=== PATIENT | male | born 1960 | race Caucasian/White ===

== ENCOUNTER 2022-01-14 07:10 | Outpatient (CLI) | payer BC, OTHER, SELFPAY ==
[2022-01-14 07:52] LABS: Basophils Absolute Auto 0.04 K/uL (0.00-0.30); Basophils Percent Auto 0.5 % (0.0-3.0); Eosinophils Absolute Auto 0.19 K/uL (0.00-0.50); Eosinophils Percent Auto 2.5 % (0.0-7.0); Hematocrit 49.6 % (37.0-53.0); Hemoglobin* 16.6 gm/dL (13.5-17.5); Lymphocytes Absolute Auto 1.61 K/uL (0.90-2.90); Lymphocytes Percent Auto 20.8 % (20-44); Mean Corpuscular HGB Conc 34 gm/dL (32-36); Mean Corpuscular Hemoglobin 30 pg (26-34); Mean Corpuscular Volume 91 fL (80-100); Monocytes Percent Auto 8.2 % (0.0-11.0); Neutrophils Absolute Auto 5.16 K/uL (1.7-7.0); Neutrophils Percent Auto 66.7 % (42.0-72.0); Platelet Count* 227 K/uL (140-440); RDW Coefficient of Variation % 13.1 % (11.5-15.5); Red Blood Count 5.46 m/uL (4.30-5.90); White Blood Count* 7.73 K/uL (4.50-11.00)
[2022-01-14 07:56] LABS: Slide Review Reflex No
--- NOTE | 2022-01-14 08:00 | CRLHL7_ITS ---
For Patients: As a result of the Century Cures Act, medical imaging exams and procedure reports are released immediately into your electronic medical record. You may view this report before your referring provider. If you have questions, please contact your health care provider. Indication: Follicular lymphoma Technique: Contrast CT chest abdomen and pelvis Comparison: CT chest abdomen and pelvis dated 01/18 Findings: Ascending thoracic aortic aneurysm measuring 4.4 centimeters. Heart Size is normal. There is no pericardial effusion. No mediastinal or hilar adenopathy. No axillary adenopathy. Lungs are clear. Fatty appearance of the liver. Spleen is not enlarged adrenal glands pancreas gallbladder are unremarkable normal caliber abdominal aorta. Kidneys appear unremarkable. Prostate gland enlarged. Urinary bladder unremarkable. Diverticulosis normal appendix. Central mesenteric and retroperitoneal adenopathy. Slight worsening of retroperitoneal adenopathy left periaortic lymph node series 2, image 163 measures 2.4 centimeter short axis when remeasured in similar locations measured 2.1 centimeters by short axis. Minimal worsening of central mesenteric adenopathy. Mesenteric stranding. The central mesenteric enlarged node measuring 3 x 2 centimeters on series 2, image 178 is not significantly changed. Minimal enlargement of few smaller nodes example 1.7 centimeter short axis node previously measured 1.4 centimeters on series 2, image 172. Small fat containing inguinal hernias no pelvic adenopathy seen. No suspicious bony lesions are seen. Impression: 1. Mild worsening of retroperitoneal and central mesenteric adenopathy. Please note that all CT scans at this facility use dose modulation, iterative reconstruction, and/or weight-based dosing when appropriate to reduce radiation dose to as low as reasonably achievable. Dictated by Dori Garcia MD @ 01/14/2022 9:09:43 AM (Electronically Signed)
[2022-01-14 08:07] LABS: Albumin* 4.9 g/dL (3.3-5.0)
[2022-01-14 08:08] LABS: Chloride* 106 mmol/L (96-114); Potassium* 5.2 mmol/L (3.6-5.1); Sodium* 144 mmol/L (135-149)
[2022-01-14 08:10] LABS: Alkaline Phosphatase* 66 U/L (40-150); Aspartate Amino Transferase* 40 U/L (12-35); Bilirubin Total* 0.5 mg/dL (0.1-1.5); Carbon Dioxide* 28 mmol/L (20-32); Creatinine* 0.9 mg/dL (0.5-1.5); Estimated Glomerular Filt Rate 96 ml/min; Total Protein* 7.8 g/dL (6.0-8.3)
[2022-01-14 08:11] LABS: Alanine Aminotransferase* 45 U/L (4-50); Blood Urea Nitrogen* 23 mg/dL (7-30); Calcium* 9.8 mg/dL (8.4-10.6); Glucose* 117 mg/dL (60-115); Lactate Dehydrogenase* 456 U/L (313-618)
[2022-01-15 17:30] LABS: Beta-2-Microglob Serum/Plasma 1.6 mg/L (<=3.0)
[2022-01-17 16:37] LABS: Albumin 4.34 g/dL (3.75-5.01); Alpha 1 Globulin 0.33 g/dL (0.19-0.46); Immunofixation IFE Done; Immunoglobulin A 316 mg/dL (68-408); Immunoglobulin G 892 mg/dL (768-1632); Immunoglobulin M 55 mg/dL (35-263); Kappa/Lambda Light Chain Ratio 1.43 (0.26-1.65); Lambda Qnt Free Light Chains 14.93 mg/L (5.71-26.30); Total Protein, Serum 7.3 g/dL (6.3-8.2)
== END 2022-01-14 07:11 | disposition home or self-care (01) ==
LOC: CT 07:12
PROVIDERS: PCP Student in an Organized Health Care Education/Training Program; Visit Provider Internal Medicine Medical Oncology
DX: C82.00 Follicular lymphoma grade I, unspecified site (principal); K40.90 Unilateral inguinal hernia, without obstruction or gangrene, not specified as recurrent
CPT/HCPCS: 36415; 71260; 74177; 80053; 82232; 82784; 83520; 83615; 84155; 84165; 85025; 86334; Q9967

== ENCOUNTER 2022-02-21 15:30 | Outpatient (RCR) | payer BC, OTHER, SELFPAY ==
--- NOTE | 2022-05-13 07:38 | ONC.NURNOTE ---
Pt stopped by to obtain copy of his most recent visit note for Affairs; pt to call us if needs additional documentation.
== END 2022-07-13 23:59 | disposition home or self-care (01) ==
LOC: CCIC 15:30
PROVIDERS: PCP Student in an Organized Health Care Education/Training Program; Visit Provider Internal Medicine Medical Oncology
DX: C82.00 Follicular lymphoma grade I, unspecified site (principal)
CPT/HCPCS: 99212; 99214

== ENCOUNTER 2022-05-21 19:55 | Observation (INO) | payer BC, OTHER, SELFPAY ==
[2022-05-21 20:06] VITALS: BP 95/76; PULSE 64; RESP 22; TEMP 36.3; O2SAT 92; BMI 31.3
--- NOTE | 2022-05-21 20:25 | CRLHL7_ITS ---
For Patients: As a result of the Century Cures Act, medical imaging exams and procedure reports are released immediately into your electronic medical record. You may view this report before your referring provider. If you have questions, please contact your health care provider. INDICATION: Trauma, fall. TECHNIQUE: CT chest, abdomen, and pelvis acquired with 95 mL Isovue 370 contrast. COMPARISON: CT chest/abdomen/pelvis dated 01/14/2022. FINDINGS: CHEST: Lungs and pleura: Bilateral dependent atelectasis. No evidence of pulmonary contusion, laceration, or pneumothorax. Heart and vessels: No cardiomegaly, no pericardial effusion. Thyroid and lower neck: No suspicious thyroid nodule. Mediastinum/kianna: No lymphadenopathy. Chest wall: No axillary lymphadenopathy. ABDOMEN/PELVIS: Liver: Diffuse hepatic steatosis. No evidence of hepatic laceration. Gallbladder and bile ducts: Unremarkable. Pancreas: Few punctate parenchymal calcifications. No pancreatic duct dilation. Spleen: Unremarkable. No evidence of splenic laceration. Adrenal glands: Unremarkable. Kidneys: Kidneys enhance symmetrically, without hydronephrosis. Retroperitoneum: Retroperitoneal lymphadenopathy, not significantly changed. For example an enlarged left retroperitoneal lymph node measures 2.1 x 2.6 cm (series 2, image 177). Bowel and mesentery: Bowel is not obstructed. Scattered colonic diverticulosis, without evidence of acute diverticulitis. Normal appendix. No mesenteric hematoma. No pneumoperitoneum. No significant change in mid abdominal mesenteric lymphadenopathy and hazy mesentery. Bladder: Unremarkable for degree of distension. Reproductive organs: Unremarkable. Pelvic lymph nodes: No lymphadenopathy. Vessels: Unremarkable. Abdominal wall: No acute abdominal wall abnormality. Bones: No acute displaced rib fracture. IMPRESSION: 1. No evidence of acute visceral traumatic injury within the chest, abdomen, or pelvis. 2. Stable mesenteric and retroperitoneal lymphadenopathy, compatible with history of lymphoma. Please note that all CT scans at this facility use dose modulation, iterative reconstruction, and/or weight-based dosing when appropriate to reduce radiation dose to as low as reasonably achievable. Dictated by Tere Pink MD @ 05/21/2022 11:14:21 PM (Electronically Signed)
--- NOTE | 2022-05-21 20:25 | CRLHL7_ITS ---
For Patients: As a result of the Cures Act, medical imaging exams and procedure reports are released immediately into your electronic medical record. You may view this report before your referring provider. If you have questions, please contact your health care provider. INDICATION: Trauma, fall on ice. TECHNIQUE: CT lumbar spine without contrast. COMPARISON: CT chest/abdomen/pelvis dated 01/14/2022. FINDINGS: Vertebrae: No acute displaced fracture or traumatic malalignment. Discs and facet joints: Mild multilevel disc degenerative changes. Bilateral facet arthropathy. Extraspinal findings: See separate report of same day CT abdomen/pelvis. IMPRESSION: No acute displaced fracture or traumatic malalignment of the lumbar spine. Please note that all CT scans at this facility use dose modulation, iterative reconstruction, and/or weight-based dosing when appropriate to reduce radiation dose to as low as reasonably achievable. Dictated by Tere Pink MD @ 05/21/2022 11:20:30 PM (Electronically Signed)
--- NOTE | 2022-05-21 20:26 | CRLHL7_ITS ---
For Patients: As a result of the Cures Act, medical imaging exams and procedure reports are released immediately into your electronic medical record. You may view this report before your referring provider. If you have questions, please contact your health care provider. INDICATION: Trauma, fall. TECHNIQUE: CT thoracic spine without contrast. COMPARISON: CT chest/abdomen/pelvis dated 01/14/2022. FINDINGS: Vertebrae: Small fractured anterior osteophyte at the level of T7. No acute vertebral body compression fracture. No evidence of traumatic malalignment. Discs and facet joints: Disc spaces and facets are within normal limits. Extraspinal findings: See separate report of same day CT chest. IMPRESSION: Small fractured anterior osteophyte at the level of T7. No acute vertebral body compression fracture, no evidence of traumatic malalignment. Please note that all CT scans at this facility use dose modulation, iterative reconstruction, and/or weight-based dosing when appropriate to reduce radiation dose to as low as reasonably achievable. Dictated by Tere Pink MD @ 05/21/2022 11:25:09 PM (Electronically Signed)
[2022-05-21 20:30] VITALS: BP 109/71; PULSE 63; RESP 18; O2SAT 94
--- NOTE | 2022-05-21 20:40 | ED_ITS ---
HPI - General Adult General Date Seen: 05/21/22 <Yareli Hilario MD - Last Filed: 05/22/22 12:04> Chief complaint: Fall/Minor Trauma <Yareli Hilario MD - Last Filed: 05/22/22 12:04> Stated complaint: Fall <Yareli Hilario MD - Last Filed: 05/22/22 12:04> Time Seen by Provider: 05/21/22 20:11 <Yareli Hilario MD - Last Filed: 05/22/22 12:04> Source: patient and family <MD Coni Rodriguez Last Filed: 05/22/22 12:04> Mode of arrival: EMS <Yareli Hilario MD - Last Filed: 05/22/22 12:04> Limitations: no limitations <Yareli Hilario MD - Last Filed: 05/22/22 12:04> History of Present Illness HPI narrative: Patient is a 61-year-old male who was walking on his deck, slipped on the ice and fell, hitting his back on the edge of the deck. He complains of pain essentially he says in a band around his body at about the level of his lower ribcage. He notes that this is severe. It is painful to breathe. He denies hitting his head, has no neck pain or headache. He came in by EMS and received some fentanyl EN route. The seems to have made him a little sleepy but he still complains of severe pain. He notes abdominal pain as well. No numbness or loss of function. No vomiting. Does not take any blood thinners. Did not have any loss of consciousness. <Yareli Hilario MD - Last Filed: 05/22/22 12:04> Related Data Home medications: Previous Rx's Medication Instructions Recorded cyclobenzaprine 10 mg tablet 10 mg PO TID PRN muscle spasm #10 05/21/22 tabs <Yareli Hilario MD - Last Filed: 05/22/22 12:04> Allergies/adverse reactions: Allergies Allergy/AdvReac Type Severity Reaction Status Date / Time No Known Drug Allergies Allergy Verified 02/21/22 16:04 <MD Coni Rodriguez Last Filed: 05/22/22 12:04> Review of Systems Status of ROS: Reports: 10 or more systems reviewed and unremarkable except as noted in History and below <Yareli Hilario MD - Last Filed: 05/22/22 12:04> [facility] Medical History: Medical History (Updated 05/22/22 @ 03:50 by Hector Marroquin MD) Lymphoma <Yareli Hilario MD - Last Filed: 05/22/22 12:04> Social History: Social History Highest level of school completed/degree received: Associate degree: academic program Smoking Status: Never smoker Do you use any of these nicotine containing products: None Second hand tobacco smoke exposure: No How often do you have a drink containing alcohol: 2-3 times a week Alcohol type: beer How many standard drinks containing alcohol do you have on a typical day: 3 or 4 How often do you have six or more drinks on one occasion: Never AUDIT-C Alcohol total score: 4 Non-prescribed substance use: denies use Caffeine: Yes (4 cups per day) service: Yes <Yareli Hilario MD - Last Filed: 05/22/22 12:04> Exam Narrative: Exam Narrative: Primary survey: Airway: Patent. Breathing: Nonlabored. Lungs clear. Circulation: Pulses intact. No external bleeding. Disability: GCS 15. Secondary survey: Vital signs reviewed In general, an alert, nontoxic Head: Normocephalic, atraumatic. Eyes: Pupils are equal reactive. Extraocular movements full. ENT: No facial trauma. Dentition intact. Neck: Cervical collar in place. No midline cervical tenderness. No anterior neck trauma. Chest: No visible signs of chest trauma. Complains of tenderness in the lower chest wall. Upper chest wall nontender to palpation. No crepitus, no subcu air. Heart regular rate and rhythm. Lungs clear bilaterally. Abdomen: No visible signs of trauma. Protuberant, complains of severe pain to light palpation. Back: Deferred initially secondary to pain with any movement. Pelvis: Stable, nontender. Extremities: Atraumatic and nontender to palpation. Neurologic: Alert, conversant, moves all extremities to command. Skin: Warm and dry, no abrasions or lacerations. <Yareli Hilario MD - Last Filed: 05/22/22 12:04> Const: Vital Signs, click to edit/add: Vital Signs - 24 hr 05/21/22 20:06 05/21/22 21:30 05/21/22 21:00 Temperature 97.3 F L Pulse Rate [Left P ulse Oximeter] 64 68 69 Respiratory Rate 22 20 20 Blood Pressure [Ri ght Upper Arm] 95/76 118/78 110/77 Pulse Oximetry 92 93 93 Oxygen Delivery Me thod Room Air Room Air Room Air 05/21/22 20:30 05/21/22 22:48 05/21/22 22:48 Temperature Pulse Rate [Left P ulse Oximeter] 63 Respiratory Rate 18 Blood Pressure [Ri ght Upper Arm] 109/71 Pulse Oximetry 94 92 92 Oxygen Delivery Me thod Room Air Room Air 05/21/22 23:30 Temperature Pulse Rate [Left P ulse Oximeter] 63 Respiratory Rate 20 Blood Pressure [Ri ght Upper Arm] 123/69 Pulse Oximetry 93 Oxygen Delivery Me thod Room Air <Yareli Hilario MD - Last Filed: 05/22/22 12:04> Vital Signs, click to edit/add: Vital Signs - 24 hr 05/21/22 20:06 05/21/22 21:30 05/21/22 21:00 Temperature 97.3 F L Pulse Rate [Left P ulse Oximeter] 64 68 69 Respiratory Rate 22 20 20 Blood Pressure [Ri ght Upper Arm] 95/76 118/78 110/77 Pulse Oximetry 92 93 93 Oxygen Delivery Me thod Room Air Room Air Room Air 05/21/22 20:30 05/21/22 22:48 05/21/22 22:48 Temperature Pulse Rate [Left P ulse Oximeter] 63 Respiratory Rate 18 Blood Pressure [Ri ght Upper Arm] 109/71 Pulse Oximetry 94 92 92 Oxygen Delivery Me thod Room Air Room Air 05/21/22 23:30 Temperature Pulse Rate [Left P ulse Oximeter] 63 Respiratory Rate 20 Blood Pressure [Ri ght Upper Arm] 123/69 Pulse Oximetry 93 Oxygen Delivery Me thod Room Air <Sri Chong MD - Last Filed: 05/21/22 23:54> Vital Signs, click to edit/add: Vital Signs - 24 hr 05/21/22 20:06 05/21/22 21:30 05/21/22 21:00 Temperature 97.3 F L Pulse Rate [Left P ulse Oximeter] 64 68 69 Respiratory Rate 22 20 20 Blood Pressure [Ri ght Upper Arm] 95/76 118/78 110/77 Pulse Oximetry 92 93 93 Oxygen Delivery Me thod Room Air Room Air Room Air 05/21/22 20:30 05/21/22 22:48 05/21/22 22:48 Temperature Pulse Rate [Left P ulse Oximeter] 63 Respiratory Rate 18 Blood Pressure [Ri ght Upper Arm] 109/71 Pulse Oximetry 94 92 92 Oxygen Delivery Me thod Room Air Room Air 05/21/22 23:30 Temperature Pulse Rate [Left P ulse Oximeter] 63 Respiratory Rate 20 Blood Pressure [Ri ght Upper Arm] 123/69 Pulse Oximetry 93 Oxygen Delivery Me thod Room Air <Hector Marroquin MD - Last Filed: 05/22/22 03:50> Course Course Hospital Course: Patient arrived by EMS but was sitting up at the time of my initial evaluation. He said it was too painful to lay down. I did give him an additional 4 mg of morphine. I looked with the ultrasound and did not see any evidence of fluid in Morison's pouch, pelvis, splenorenal views. No evidence of pericardial effusion, and he had sliding lung signs bilaterally. Given complaints of severe pain in his lower chest, diffuse abdomen and across his back, I ordered CT scans of his chest, abdomen, thoracic and lumbar spine. After left he apparently complained to the nurse that his left arm was feeling a little numb. He still does not have any complaints of neck pain or trauma but I did add on a CT of the cervical spine as well. Labs thus far show white blood cell count of 14.6, related possibly to his history of lymphoma which is being followed. He is not on any kind of active treatment currently. Hemoglobin is 16.5, platelets are a little low 125,000. Metabolic panel normal. LFTs minimally elevated, AST of 65 an ALT of 61. Bilirubin is normal troponin is negative. Lipase is normal at 237. CT scans are pending at this time. <Yareli Hilario MD - Last Filed: 05/22/22 12:04> Reevaluation(s) Reevaluation #1: Took over the care of this patient. Patient continued to have diffuse overall pain. He received another dose of morphine as well as Ativan. Cervical spine CT was unremarkable. Chest, abdomen, pelvis CT scan unremarkable for any acute findings. Thoracic spine CT shows a small fractured osteophyte but no vertebral body fractures. Lumbar spine CT unremarkable. <Sri Chong MD - Last Filed: 05/21/22 23:54> Reevaluation #2: Our EHR was down, I am entering this in after the fact, but what happened this patient was signed over to me by the outgoing ER physician, with the fact that he was going to go home, I went back in to and clearly he could not even stand up, without pain coming across his chest and abdomen. It was characteristically like a compression fracture, I went back in and reviewed the CT thoracic, and could see and a bleach type fracture of the anterior part of the T7 vertebrae. This is not all stated in the report, I then called the radiologist who read that, and he had then appended his report. I spoke to from neuro surgery and [facility]. He agreed that this is a stable fracture, it is basically pain control at this time, there is no evidence on his review of the CT of a hematoma, or retropulsion of anything causing impingement of the spinal canal. A TLSO is suggested for pain control, this may need cervical component back component to prevent extension. I then spoke to of Suresh , admission to the hospital here would be appropriate for pain control. <Hector Marroquin MD - Last Filed: 05/22/22 03:50> Time: 03:46 <Hector Marroquin MD - Last Filed: 05/22/22 03:50> Vital Signs Vital signs: Initial Vital Signs Temperature 97.3 F L 05/21/22 20:06 Temperature Source Temporal Artery Scan 05/21/22 20:06 Pulse Rate 64 05/21/22 20:06 Respiratory Rate 22 05/21/22 20:06 Blood Pressure 95/76 05/21/22 20:06 Blood Pressure Mean 82 05/21/22 20:06 Blood Pressure Position Supine 05/21/22 20:06 Pulse Oximetry 92 05/21/22 20:06 Oxygen Delivery Method 05/21/22 20:06 Vital Signs Temperature 97.3 F L 05/21/22 20:06 Pulse Rate 64 05/21/22 20:06 Respiratory Rate 22 05/21/22 20:06 Blood Pressure 95/76 05/21/22 20:06 Pulse Oximetry 92 05/21/22 20:06 Oxygen Delivery Method 05/21/22 20:06 Temperature 97 F L 05/22/22 04:27 Pulse Rate 75 05/22/22 04:26 Respiratory Rate 16 05/22/22 04:12 Blood Pressure 118/80 05/22/22 04:12 Pulse Oximetry 93 05/22/22 04:20 Oxygen Delivery Method 05/22/22 04:20 <Yareli Hilario MD - Last Filed: 05/22/22 12:04> Initial Vital Signs Temperature 97.3 F L 05/21/22 20:06 Temperature Source Temporal Artery Scan 05/21/22 20:06 Pulse Rate 64 05/21/22 20:06 Respiratory Rate 22 05/21/22 20:06 Blood Pressure 95/76 05/21/22 20:06 Blood Pressure Mean 82 05/21/22 20:06 Blood Pressure Position Supine 05/21/22 20:06 Pulse Oximetry 92 05/21/22 20:06 Oxygen Delivery Method 05/21/22 20:06 Vital Signs Temperature 97.3 F L 05/21/22 20:06 Pulse Rate 64 05/21/22 20:06 Respiratory Rate 22 05/21/22 20:06 Blood Pressure 95/76 05/21/22 20:06 Pulse Oximetry 92 05/21/22 20:06 Oxygen Delivery Method 05/21/22 20:06 Temperature 97 F L 05/22/22 04:27 Pulse Rate 75 05/22/22 04:26 Respiratory Rate 16 05/22/22 04:12 Blood Pressure 118/80 05/22/22 04:12 Pulse Oximetry 93 05/22/22 04:20 Oxygen Delivery Method 05/22/22 04:20 <Sri Chong MD - Last Filed: 05/21/22 23:54> Initial Vital Signs Temperature 97.3 F L 05/21/22 20:06 Temperature Source Temporal Artery Scan 05/21/22 20:06 Pulse Rate 64 05/21/22 20:06 Respiratory Rate 22 05/21/22 20:06 Blood Pressure 95/76 05/21/22 20:06 Blood Pressure Mean 82 05/21/22 20:06 Blood Pressure Position Supine 05/21/22 20:06 Pulse Oximetry 92 05/21/22 20:06 Oxygen Delivery Method 05/21/22 20:06 Vital Signs Temperature 97.3 F L 05/21/22 20:06 Pulse Rate 64 05/21/22 20:06 Respiratory Rate 22 05/21/22 20:06 Blood Pressure 95/76 05/21/22 20:06 Pulse Oximetry 92 05/21/22 20:06 Oxygen Delivery Method 05/21/22 20:06 Temperature 97 F L 05/22/22 04:27 Pulse Rate 75 05/22/22 04:26 Respiratory Rate 16 05/22/22 04:12 Blood Pressure 118/80 05/22/22 04:12 Pulse Oximetry 93 05/22/22 04:20 Oxygen Delivery Method 05/22/22 04:20 <Hector Marroquin MD - Last Filed: 05/22/22 03:50> Medical Decision Making MDM Narrative Medical decision making narrative: 61-year-old male status post a fall imaging was unremarkable aside from the osteophyte fracture. Discussed this with the patient. He felt like he was having multiple muscle spasms that caused him to cry out in pain while he was here but he does feel reassured that his scans are normal. Patient will be discharged home on Flexeril. We discussed other symptomatic management and reasons for follow-up. patient and had no other questions. <Sri Chong MD - Last Filed: 05/21/22 23:54> Medical Records Medical records reviewed: Yes I reviewed the patient's medical records <Sri Chong MD - Last Filed: 05/21/22 23:54> Lab Data Lab results reviewed: Yes I reviewed the patient's lab results <Sri Chong MD - Last Filed: 05/21/22 23:54> Labs: Lab Results 05/21/22 05/21/22 05/21/22 Range/Units 20:39 20:39 20:45 WBC 14.60 H (4.50-11.00) K/uL RBC 5.50 (4.30-5.90) m/uL Hgb 16.5 (13.5-17.5) gm/dL Hct 50.9 (37.0-53.0) % MCV 93 (80-100) fL MCH 30 (26-34) pg MCHC 32 (32-36) gm/dL RDW Coeff of [place] 13.2 (11.5-15.5) % Plt Count 125 L (140-440) K/uL Neut % (Auto) 72.9 H (42.0-72.0) % Lymph % (Auto) 16.2 L (20-44) % [place] % (Auto) 7.3 (0.0-11.0) % Eos % (Auto) 1.2 (0.0-7.0) % Baso % (Auto) 0.5 (0.0-3.0) % Neut # (Auto) 10.60 H (1.7-7.0) K/uL Lymph # (Auto) 2.40 (0.90-2.90) K/uL [place] # (Auto) 1.10 H (0.00-0.90) K/UL Eos # (Auto) 0.20 (0.00-0.50) K/uL Baso # (Auto) 0.10 (0.00-0.30) K/uL Sodium 138 (135-149) mmol/L Potassium 3.7 (3.6-5.1) mmol/L Chloride 106 (96-114) mmol/L Carbon Dioxide 23 (20-32) mmol/L BUN 16 (7-30) mg/dL Creatinine 1.0 (0.5-1.5) mg/dL Estimated Creat Clear 70.69 Estimated GFR 85 ml/min Glucose 127 H (60-115) mg/dL Calcium 8.6 (8.4-10.6) mg/dL Total Bilirubin 0.4 (0.1-1.5) mg/dL Direct Bilirubin 0.2 (0.0-0.5) mg/dL AST 65 H (12-35) U/L ALT 61 H (4-50) U/L Alkaline Phosphatase 50 (40-150) U/L Troponin I < 0.01 L (0.01-0.04) ng/mL Total Protein 7.3 (6.0-8.3) g/dL Albumin 4.4 (3.3-5.0) g/dL Lipase 237 (23-300) U/L SARS-CoV-2 (PCR) (Negative) Influenza Type A (PCR) (Negative) Influenza Type B (PCR) (Negative) POC Creatinine 1.1 (0.6-1.3) mg/dl 05/21/22 Range/Units 22:09 WBC (4.50-11.00) K/uL RBC (4.30-5.90) m/uL Hgb (13.5-17.5) gm/dL Hct (37.0-53.0) % MCV (80-100) fL MCH (26-34) pg MCHC (32-36) gm/dL RDW Coeff of [place] (11.5-15.5) % Plt Count (140-440) K/uL Neut % (Auto) (42.0-72.0) % Lymph % (Auto) (20-44) % [place] % (Auto) (0.0-11.0) % Eos % (Auto) (0.0-7.0) % Baso % (Auto) (0.0-3.0) % Neut # (Auto) (1.7-7.0) K/uL Lymph # (Auto) (0.90-2.90) K/uL [place] # (Auto) (0.00-0.90) K/UL Eos # (Auto) (0.00-0.50) K/uL Baso # (Auto) (0.00-0.30) K/uL Sodium (135-149) mmol/L Potassium (3.6-5.1) mmol/L Chloride (96-114) mmol/L Carbon Dioxide (20-32) mmol/L BUN (7-30) mg/dL Creatinine (0.5-1.5) mg/dL Estimated Creat Clear Estimated GFR ml/min Glucose (60-115) mg/dL Calcium (8.4-10.6) mg/dL Total Bilirubin (0.1-1.5) mg/dL Direct Bilirubin (0.0-0.5) mg/dL AST (12-35) U/L ALT (4-50) U/L Alkaline Phosphatase (40-150) U/L Troponin I (0.01-0.04) ng/mL Total Protein (6.0-8.3) g/dL Albumin (3.3-5.0) g/dL Lipase (23-300) U/L SARS-CoV-2 (PCR) Negative SARS-CoV-2 (Negative) Influenza Type A (PCR) Negative PCR FLU A (Negative) Influenza Type B (PCR) Negative PCR FLU B (Negative) POC Creatinine (0.6-1.3) mg/dl <Yareli Hilario MD - Last Filed: 05/22/22 12:04> Lab Results 05/21/22 05/21/22 05/21/22 Range/Units 20:39 20:39 20:45 WBC 14.60 H (4.50-11.00) K/uL RBC 5.50 (4.30-5.90) m/uL Hgb 16.5 (13.5-17.5) gm/dL Hct 50.9 (37.0-53.0) % MCV 93 (80-100) fL MCH 30 (26-34) pg MCHC 32 (32-36) gm/dL RDW Coeff of [place] 13.2 (11.5-15.5) % Plt Count 125 L (140-440) K/uL Neut % (Auto) 72.9 H (42.0-72.0) % Lymph % (Auto) 16.2 L (20-44) % [place] % (Auto) 7.3 (0.0-11.0) % Eos % (Auto) 1.2 (0.0-7.0) % Baso % (Auto) 0.5 (0.0-3.0) % Neut # (Auto) 10.60 H (1.7-7.0) K/uL Lymph # (Auto) 2.40 (0.90-2.90) K/uL [place] # (Auto) 1.10 H (0.00-0.90) K/UL Eos # (Auto) 0.20 (0.00-0.50) K/uL Baso # (Auto) 0.10 (0.00-0.30) K/uL Sodium 138 (135-149) mmol/L Potassium 3.7 (3.6-5.1) mmol/L Chloride 106 (96-114) mmol/L Carbon Dioxide 23 (20-32) mmol/L BUN 16 (7-30) mg/dL Creatinine 1.0 (0.5-1.5) mg/dL Estimated Creat Clear 70.69 Estimated GFR 85 ml/min Glucose 127 H (60-115) mg/dL Calcium 8.6 (8.4-10.6) mg/dL Total Bilirubin 0.4 (0.1-1.5) mg/dL Direct Bilirubin 0.2 (0.0-0.5) mg/dL AST 65 H (12-35) U/L ALT 61 H (4-50) U/L Alkaline Phosphatase 50 (40-150) U/L Troponin I < 0.01 L (0.01-0.04) ng/mL Total Protein 7.3 (6.0-8.3) g/dL Albumin 4.4 (3.3-5.0) g/dL Lipase 237 (23-300) U/L SARS-CoV-2 (PCR) (Negative) Influenza Type A (PCR) (Negative) Influenza Type B (PCR) (Negative) POC Creatinine 1.1 (0.6-1.3) mg/dl 05/21/22 Range/Units 22:09 WBC (4.50-11.00) K/uL RBC (4.30-5.90) m/uL Hgb (13.5-17.5) gm/dL Hct (37.0-53.0) % MCV (80-100) fL MCH (26-34) pg MCHC (32-36) gm/dL RDW Coeff of [place] (11.5-15.5) % Plt Count (140-440) K/uL Neut % (Auto) (42.0-72.0) % Lymph % (Auto) (20-44) % [place] % (Auto) (0.0-11.0) % Eos % (Auto) (0.0-7.0) % Baso % (Auto) (0.0-3.0) % Neut # (Auto) (1.7-7.0) K/uL Lymph # (Auto) (0.90-2.90) K/uL [place] # (Auto) (0.00-0.90) K/UL Eos # (Auto) (0.00-0.50) K/uL Baso # (Auto) (0.00-0.30) K/uL Sodium (135-149) mmol/L Potassium (3.6-5.1) mmol/L Chloride (96-114) mmol/L Carbon Dioxide (20-32) mmol/L BUN (7-30) mg/dL Creatinine (0.5-1.5) mg/dL Estimated Creat Clear Estimated GFR ml/min Glucose (60-115) mg/dL Calcium (8.4-10.6) mg/dL Total Bilirubin (0.1-1.5) mg/dL Direct Bilirubin (0.0-0.5) mg/dL AST (12-35) U/L ALT (4-50) U/L Alkaline Phosphatase (40-150) U/L Troponin I (0.01-0.04) ng/mL Total Protein (6.0-8.3) g/dL Albumin (3.3-5.0) g/dL Lipase (23-300) U/L SARS-CoV-2 (PCR) Negative SARS-CoV-2 (Negative) Influenza Type A (PCR) Negative PCR FLU A (Negative) Influenza Type B (PCR) Negative PCR FLU B (Negative) POC Creatinine (0.6-1.3) mg/dl <Sri Chong MD - Last Filed: 05/21/22 23:54> Lab Results 05/21/22 05/21/22 05/21/22 Range/Units 20:39 20:39 20:45 WBC 14.60 H (4.50-11.00) K/uL RBC 5.50 (4.30-5.90) m/uL Hgb 16.5 (13.5-17.5) gm/dL Hct 50.9 (37.0-53.0) % MCV 93 (80-100) fL MCH 30 (26-34) pg MCHC 32 (32-36) gm/dL RDW Coeff of [place] 13.2 (11.5-15.5) % Plt Count 125 L (140-440) K/uL Neut % (Auto) 72.9 H (42.0-72.0) % Lymph % (Auto) 16.2 L (20-44) % [place] % (Auto) 7.3 (0.0-11.0) % Eos % (Auto) 1.2 (0.0-7.0) % Baso % (Auto) 0.5 (0.0-3.0) % Neut # (Auto) 10.60 H (1.7-7.0) K/uL Lymph # (Auto) 2.40 (0.90-2.90) K/uL [place] # (Auto) 1.10 H (0.00-0.90) K/UL Eos # (Auto) 0.20 (0.00-0.50) K/uL Baso # (Auto) 0.10 (0.00-0.30) K/uL Sodium 138 (135-149) mmol/L Potassium 3.7 (3.6-5.1) mmol/L Chloride 106 (96-114) mmol/L Carbon Dioxide 23 (20-32) mmol/L BUN 16 (7-30) mg/dL Creatinine 1.0 (0.5-1.5) mg/dL Estimated Creat Clear 70.69 Estimated GFR 85 ml/min Glucose 127 H (60-115) mg/dL Calcium 8.6 (8.4-10.6) mg/dL Total Bilirubin 0.4 (0.1-1.5) mg/dL Direct Bilirubin 0.2 (0.0-0.5) mg/dL AST 65 H (12-35) U/L ALT 61 H (4-50) U/L Alkaline Phosphatase 50 (40-150) U/L Troponin I < 0.01 L (0.01-0.04) ng/mL Total Protein 7.3 (6.0-8.3) g/dL Albumin 4.4 (3.3-5.0) g/dL Lipase 237 (23-300) U/L SARS-CoV-2 (PCR) (Negative) Influenza Type A (PCR) (Negative) Influenza Type B (PCR) (Negative) POC Creatinine 1.1 (0.6-1.3) mg/dl 05/21/22 Range/Units 22:09 WBC (4.50-11.00) K/uL RBC (4.30-5.90) m/uL Hgb (13.5-17.5) gm/dL Hct (37.0-53.0) % MCV (80-100) fL MCH (26-34) pg MCHC (32-36) gm/dL RDW Coeff of [place] (11.5-15.5) % Plt Count (140-440) K/uL Neut % (Auto) (42.0-72.0) % Lymph % (Auto) (20-44) % [place] % (Auto) (0.0-11.0) % Eos % (Auto) (0.0-7.0) % Baso % (Auto) (0.0-3.0) % Neut # (Auto) (1.7-7.0) K/uL Lymph # (Auto) (0.90-2.90) K/uL [place] # (Auto) (0.00-0.90) K/UL Eos # (Auto) (0.00-0.50) K/uL Baso # (Auto) (0.00-0.30) K/uL Sodium (135-149) mmol/L Potassium (3.6-5.1) mmol/L Chloride (96-114) mmol/L Carbon Dioxide (20-32) mmol/L BUN (7-30) mg/dL Creatinine (0.5-1.5) mg/dL Estimated Creat Clear Estimated GFR ml/min Glucose (60-115) mg/dL Calcium (8.4-10.6) mg/dL Total Bilirubin (0.1-1.5) mg/dL Direct Bilirubin (0.0-0.5) mg/dL AST (12-35) U/L ALT (4-50) U/L Alkaline Phosphatase (40-150) U/L Troponin I (0.01-0.04) ng/mL Total Protein (6.0-8.3) g/dL Albumin (3.3-5.0) g/dL Lipase (23-300) U/L SARS-CoV-2 (PCR) Negative SARS-CoV-2 (Negative) Influenza Type A (PCR) Negative PCR FLU A (Negative) Influenza Type B (PCR) Negative PCR FLU B (Negative) POC Creatinine (0.6-1.3) mg/dl <Hector Marroquin MD - Last Filed: 05/22/22 03:50> Imaging Data Cervical spine CT: Attestation: I have reviewed the pertinent imaging results. <Sri Chong MD - Last Filed: 05/21/22 23:54> Radiologist's impression: Noncontrast CT images acquired through the cervical spine. COMPARISON: None. FINDINGS: The cervical lordosis is maintained. Vertebral body heights are preserved. No acute fracture, spondylolisthesis, or traumatic subluxation. Mild multilevel facet arthropathy and uncinate spurring without high-grade spinal canal or neural foraminal stenosis. Degenerative changes at the atlantodental articulation. The lung apices are clear. IMPRESSION: 1. No acute fracture or traumatic subluxation. 2. Mild multilevel cervical spondylosis. <Sri Chong MD - Last Filed: 05/21/22 23:54> CT Chest/Ab/Pelvis: Attestation: I have reviewed the pertinent imaging results. <Sri Chong MD - Last Filed: 05/21/22 23:54> Radiologist's impression: CT chest/abdomen/pelvis dated 01/14/2022. FINDINGS: CHEST: Lungs and pleura: Bilateral dependent atelectasis. No evidence of pulmonary contusion, laceration, or pneumothorax. Heart and vessels: No cardiomegaly, no pericardial effusion. Thyroid and lower neck: No suspicious thyroid nodule. Mediastinum/kianna: No lymphadenopathy. Chest wall: No axillary lymphadenopathy. ABDOMEN/PELVIS: Liver: Diffuse hepatic steatosis. No evidence of hepatic laceration. Gallbladder and bile ducts: Unremarkable. Pancreas: Few punctate parenchymal calcifications. No pancreatic duct dilation. Spleen: Unremarkable. No evidence of splenic laceration. Adrenal glands: Unremarkable. Kidneys: Kidneys enhance symmetrically, without hydronephrosis. Retroperitoneum: Retroperitoneal lymphadenopathy, not significantly changed. For example an enlarged left retroperitoneal lymph node measures 2.1 x 2.6 cm (series 2, image 177). Bowel and mesentery: Bowel is not obstructed. Scattered colonic diverticulosis, without evidence of acute diverticulitis. Normal appendix. No mesenteric hematoma. No pneumoperitoneum. No significant change in mid abdominal mesenteric lymphadenopathy and hazy mesentery. Bladder: Unremarkable for degree of distension. Reproductive organs: Unremarkable. Pelvic lymph nodes: No lymphadenopathy. Vessels: Unremarkable. Abdominal wall: No acute abdominal wall abnormality. Bones: No acute displaced rib fracture. IMPRESSION: 1. No evidence of acute visceral traumatic injury within the chest, abdomen, or pelvis. 2. Stable mesenteric and retroperitoneal lymphadenopathy, compatible with history of lymphoma. <Sri Chong MD - Last Filed: 05/21/22 23:54> Thoracic spine CT: Attestation: I have reviewed the pertinent imaging results. <Sri Chong MD - Last Filed: 05/21/22 23:54> Radiologist's impression: CT thoracic spine without contrast. COMPARISON: CT chest/abdomen/pelvis dated 01/14/2022. FINDINGS: Vertebrae: Small fractured anterior osteophyte at the level of T7. No acute vertebral body compression fracture. No evidence of traumatic malalignment. Discs and facet joints: Disc spaces and facets are within normal limits. Extraspinal findings: See separate report of same day CT chest. IMPRESSION: Small fractured anterior osteophyte at the level of T7. No acute vertebral body compression fracture, no evidence of traumatic malalignment. <Sri Chong MD - Last Filed: 05/21/22 23:54> CT thoracic spine without contrast. COMPARISON: CT chest/abdomen/pelvis dated 01/14/2022. FINDINGS: Vertebrae: Small fractured anterior osteophyte at the level of T7. No acute vertebral body compression fracture. No evidence of traumatic malalignment. Discs and facet joints: Disc spaces and facets are within normal limits. Extraspinal findings: See separate report of same day CT chest. IMPRESSION: Small fractured anterior osteophyte at the level of T7. No acute vertebral body compression fracture, no evidence of traumatic malalignment. Patient: HANNA GALLEGO Facility: [facility] Site . Site : [id number] Study: CT Spine Thoracic -05/21/2022 10:45:57 PM Ordering Physician: Sulaiman Downs Final Report: INDICATION: Trauma, fall. TECHNIQUE: CT thoracic spine without contrast. COMPARISON: CT chest/abdomen/pelvis dated 01/14/2022. FINDINGS: Vertebrae: Small fractured anterior osteophyte at the level of T7. No acute vertebral body compression fracture. No evidence of traumatic malalignment. Discs and facet joints: Disc spaces and facets are within normal limits. Extraspinal findings: See separate report of same day CT chest. IMPRESSION: Small fractured anterior osteophyte at the level of T7. No acute vertebral body compression fracture, no evidence of traumatic malalignment. Please note that all CT scans at this facility use dose modulation, iterative reconstruction, and/or weight-based dosing when appropriate to reduce radiation dose to as low as reasonably achievable. Dictated by Tere Pink MD @ 05/21/2022 11:25:09 PM ----- ADDENDUM ----- The previously described anterior osteophyte fracture extends into and involves the anterior T7 vertebral body, with extension to the mid superior endplate. There is no involvement of the posterior elements, and no significant vertebral body height loss. No retropulsion. Case was discussed with Dr. Marroquin at 00:41 on 05/22/2022. Dictated by Tere Pink MD @ May 22 2022 12:42AM (Electronic Signature) <Hector Marroquin MD - Last Filed: 05/22/22 03:50> Lumbar spine CT: Attestation: I have reviewed the pertinent imaging results. <Sri Chong MD - Last Filed: 05/21/22 23:54> Radiologist's impression: CT chest/abdomen/pelvis dated 01/14/2022. FINDINGS: Vertebrae: No acute displaced fracture or traumatic malalignment. Discs and facet joints: Mild multilevel disc degenerative changes. Bilateral facet arthropathy. Extraspinal findings: See separate report of same day CT abdomen/pelvis. IMPRESSION: No acute displaced fracture or traumatic malalignment of the lumbar spine. <Sri Chong MD - Last Filed: 05/21/22 23:54> Discharge Plan Discharge Clinical Impression: Muscle spasm, Fall, Closed T7 fracture <Yareli Hilario MD - Last Filed: 05/22/22 12:04> Patient Disposition: Admitted As Inpatient <Yareli Hilario MD - Last Filed: 05/22/22 12:04> Condition: Stable <Yareli Hilario MD - Last Filed: 05/22/22 12:04>
[2022-05-21 20:46] LABS: Creatinine, Point-of-Care* 1.1 mg/dl (0.6-1.3)
[2022-05-21 20:47] LABS: Basophils Percent Auto 0.5 % (0.0-3.0); Eosinophils Percent Auto 1.2 % (0.0-7.0); Hematocrit 50.9 % (37.0-53.0); Hemoglobin* 16.5 gm/dL (13.5-17.5); Immature Granulocytes Pct Auto 1.9 %; Lymphocytes Percent Auto 16.2 % (20-44); Mean Corpuscular HGB Conc 32 gm/dL (32-36); Mean Corpuscular Hemoglobin 30 pg (26-34); Mean Corpuscular Volume 93 fL (80-100); Monocytes Percent Auto 7.3 % (0.0-11.0); Neutrophils Percent Auto 72.9 % (42.0-72.0); Platelet Count* 125 K/uL (140-440); RDW Coefficient of Variation % 13.2 % (11.5-15.5)
[2022-05-21] MEDS: ONDANSETRON 2 MG/ML inj 4 MG IVP (20:49)
[2022-05-21] MEDS: MORPHINE 4 MG/ML INJ IVP ×2 (20:49→22:14)
[2022-05-21] MEDS: 0.9 % SODIUM CHLORIDE 1000 ml 1,000 ML IV (20:49)
[2022-05-21 20:50] LABS: Slide Review Reflex No
[2022-05-21 21:00] VITALS: BP 110/77; PULSE 69; RESP 20; O2SAT 93
[2022-05-21 21:00] LABS: Chloride* 106 mmol/L (96-114)
[2022-05-21 21:01] LABS: Albumin* 4.4 g/dL (3.3-5.0); Potassium* 3.7 mmol/L (3.6-5.1); Sodium* 138 mmol/L (135-149)
[2022-05-21 21:03] LABS: Est. Creatinine Clearance* 70.69; Estimated Glomerular Filt Rate 85 ml/min
[2022-05-21 21:04] LABS: Alanine Aminotransferase* 61 U/L (4-50); Alkaline Phosphatase* 50 U/L (40-150); Aspartate Amino Transferase* 65 U/L (12-35); Bilirubin Direct* 0.2 mg/dL (0.0-0.5); Bilirubin Total* 0.4 mg/dL (0.1-1.5); Blood Urea Nitrogen* 16 mg/dL (7-30); Calcium* 8.6 mg/dL (8.4-10.6); Carbon Dioxide* 23 mmol/L (20-32); Glucose* 127 mg/dL (60-115); Lipase* 237 U/L (23-300); Total Protein* 7.3 g/dL (6.0-8.3)
[2022-05-21 21:17] LABS: Troponin I* < 0.01 ng/mL (0.01-0.04)
--- NOTE | 2022-05-21 21:17 | CRLHL7_ITS ---
For Patients: As a result of the Century Cures Act, medical imaging exams and procedure reports are released immediately into your electronic medical record. You may view this report before your referring provider. If you have questions, please contact your health care provider. INDICATION: Fall. TECHNIQUE: Noncontrast CT images acquired through the cervical spine. COMPARISON: None. FINDINGS: The cervical lordosis is maintained. Vertebral body heights are preserved. No acute fracture, spondylolisthesis, or traumatic subluxation. Mild multilevel facet arthropathy and uncinate spurring without high-grade spinal canal or neural foraminal stenosis. Degenerative changes at the atlantodental articulation. The lung apices are clear. IMPRESSION: 1. No acute fracture or traumatic subluxation. 2. Mild multilevel cervical spondylosis. Please note that all CT scans at this facility use dose modulation, iterative reconstruction, and/or weight-based dosing when appropriate to reduce radiation dose to as low as reasonably achievable. Dictated by Steven Sagastume MD @ 05/21/2022 11:10:03 PM (Electronically Signed)
[2022-05-21 21:30] VITALS: BP 118/78; PULSE 68; RESP 20; O2SAT 93
[2022-05-21] MEDS: LORazepam 2 MG/ML inj 0.5 MG IVP (22:39)
[2022-05-21 22:48] VITALS: O2SAT 92
[2022-05-21 23:18] LABS: PCR FLU A Negative PCR FLU A (Negative); PCR FLU B Negative PCR FLU B (Negative)
[2022-05-21 23:19] LABS: SARS PCR* Negative SARS-CoV-2 (Negative)
[2022-05-21 23:30] VITALS: BP 123/69; PULSE 63; RESP 20; O2SAT 93
[2022-05-22] VITALS (11 sets, daily range): BP systolic 116–133; BP diastolic 73–80; PULSE 61–78; RESP 16–20; TEMP 36.1–36.8; O2SAT 90–93; BMI 32.6
--- NOTE | 2022-05-22 00:20 | ED.NURSE ---
attempted to get patient up, unable to get up r/t intense pain and cant breathe when sitting MD barros updated.
[2022-05-22] MEDS: HYDROmorphone 0.5 mg/0.5 ml inj 1 MG IVP (01:14)
[2022-05-22] MEDS: KETOROLAC 30 MG/ML inj IVP (01:14)
--- NOTE | 2022-05-22 04:23 | P.IMCN_ITS ---
Date of Consult Consult date: 05/22/22 Primary Care Provider: RICKIE LI DO Consult Narrative Narrative: Miguel Angel Bruno is a 61 year old male [facility] Medical History (Updated 05/22/22 @ 03:50 by Hector Marroquin MD) Lymphoma Social History Highest level of school completed/degree received: Associate degree: academic program Smoking Status: Never smoker Do you use any of these nicotine containing products: None Second hand tobacco smoke exposure: No How often do you have a drink containing alcohol: 2-3 times a week Alcohol type: beer How many standard drinks containing alcohol do you have on a typical day: 3 or 4 How often do you have six or more drinks on one occasion: Never AUDIT-C Alcohol total score: 4 Non-prescribed substance use: denies use Caffeine: Yes (4 cups per day) service: Yes Meds Home Medications and Allergies Allergies Allergy/AdvReac Type Severity Reaction Status Date / Time No Known Drug Allergies Allergy Verified 02/21/22 16:04 Exam Const: Vital Signs, click to edit/add: Vital Signs - 24 hr 05/21/22 20:06 05/21/22 21:30 05/21/22 21:00 Temperature 97.3 F L Pulse Rate [Left P ulse Oximeter] 64 68 69 Pulse Rate [Left R adial] Respiratory Rate 22 20 20 Blood Pressure [Ri ght Arm] Blood Pressure [Ri ght Upper Arm] 95/76 118/78 110/77 Pulse Oximetry 92 93 93 Oxygen Delivery Me thod Room Air Room Air Room Air 05/21/22 20:30 05/21/22 22:48 05/21/22 22:48 Temperature Pulse Rate [Left P ulse Oximeter] 63 Pulse Rate [Left R adial] Respiratory Rate 18 Blood Pressure [Ri ght Arm] Blood Pressure [Ri ght Upper Arm] 109/71 Pulse Oximetry 94 92 92 Oxygen Delivery Me thod Room Air Room Air 05/21/22 23:30 05/22/22 04:12 05/22/22 04:12 Temperature 97 F L 97 F L Pulse Rate [Left P ulse Oximeter] 63 Pulse Rate [Left R adial] 70 70 Respiratory Rate 20 16 16 Blood Pressure [Ri ght Arm] 118/80 118/80 Blood Pressure [Ri ght Upper Arm] 123/69 Pulse Oximetry 93 93 93 Oxygen Delivery Me thod Room Air Room Air Room Air Labs Labs: Short CBC 05/21/22 Range/Units 20:39 WBC 14.60 H (4.50-11.00) K/uL Hgb 16.5 (13.5-17.5) gm/dL Hct 50.9 (37.0-53.0) % Plt Count 125 L (140-440) K/uL BMP 05/21/22 20:39 Sodium 138 Potassium 3.7 Chloride 106 Carbon Dioxide 23 BUN 16 Creatinine 1.0 Glucose 127 H Calcium 8.6 Cardiac Enzymes 05/21/22 Range/Units 20:39 Troponin I < 0.01 L (0.01-0.04) ng/mL Liver Function 05/21/22 Range/Units 20:39 Total Bilirubin 0.4 (0.1-1.5) mg/dL Direct Bilirubin 0.2 (0.0-0.5) mg/dL AST 65 H (12-35) U/L ALT 61 H (4-50) U/L Alkaline Phosphatase 50 (40-150) U/L Albumin 4.4 (3.3-5.0) g/dL Assessment and Plan Assessment and plan (1) Muscle spasm: Status: Acute (2) Closed T7 fracture: Status: Acute (3) Follicular lymphoma grade I: Status: Acute Plan [facility] Hospitalist eHospitalist was contacted with request of consultation on admission support for Miguel Angel Bruno Chief complaint: Fall HPI: 61-year-old male with history of lymphoma not on any medications came in after a fall. He slipped on the ice and fell hitting his back on the edge of the deck. Reported pain in a bandlike fashion at the level of his rib cage. Pain was severe, nonradiating and was difficult to breathe because of pain. There was no injury to head. No neck pain or headache. He did report right lower quadrant abdominal pain that has improved. Also reports mild numbness in his right upper extremity that has improved as well. On presentation his vital signs included slightly elevated blood pressure and heart rate. He was afebrile. Labs included WBCs 14.6, hemoglobin 16.5, platelets 125. BMP was unremarkable. AST was 65 and ALT 61. Troponin was negative. Lipase 237. COVID-negative. CT chest abdomen pelvis showed no evidence of acute visceral trauma. Stable mesenteric and retroperitoneal lymphadenopathy compatible with his history of lymphoma. CT lumbar spine unremarkable for acute fractures. CT thoracic spine with T7 anterior osteophyte small fracture. No acute vertebral compression fracture. CT cervical spine without acute fracture or traumatic subluxation. He was given pain medications. He could not stand up or bear weight and hence admitted for further management. CT thoracic spine showing the fracture was discussed with neurosurgery at [facility] and they recommended TLSO brace and pain control. Home Medications: see EMR Pertinent Medical History: See EMR Pertinent Social History: See EMR Exam (performed via interactive video with assistance of bedside nurse; ): General: alert, cooperative, moderate distress from pain HEENT: oral mucosa pink and moist without erythema Lungs: clear to auscultation bilaterally without crackle or wheeze CV: regular rate and rhythm without loud murmur rub or gallop Abd: denies tenderness and does not exhibit signs of pain with palpation done by bedside nurse Ext: no pitting edema noted Skin: no rashes, bruises or lesions. Neuro:[alert, oriented x 3. facial muscles grossly intact, moves all extremities without any significant focal deficit appreciated by nurse Labs and imaging were reviewed Assessment and Plan: Mechanical fall T7 fracture at anterior osteophyte Back pain and muscle spasm secondary to above Elevated transaminases likely related to muscle injury History of lymphoma not on any treatment Leukocytosis likely related to lymphoma and stress Pain control using Tylenol, Percocet and IV as needed Dilaudid. Incentive spirometry. TLSO brace in the morning. PT OT after TLSO brace. IV fluids: None DVT prophylaxis: Lovenox Diet: Regular diet CODE STATUS: Full code Thank you for including Suresh Hicks in the patients care. This service is available for further assistance as requested by your care team by calling [phone].
--- NOTE | 2022-05-22 04:36 | PC.NURSE ---
Pt came to Floor @ 0200 . Pain in mid Back from fall at home on deck. States did not strike head. Pain controlled with meds and rest. No N/V. Pt pleasant and cooperative. IS encouraged.
[2022-05-22] MEDS: ONDANSETRON 2 MG/ML inj 4 MG IVP ×2 (05:12→19:18)
[2022-05-22] MEDS: ENOXAPARIN 40 MG/0.4 ML INJ SUBCUT (05:12)
[2022-05-22] MEDS: OxyCODONE/APAP 5-325 TABLET 1 TAB PO ×2 (05:13→09:26)
[2022-05-22] MEDS: SODIUM CHLORIDE 0.9 % (FLUSH) 10 ML SYRINGE 5 ML IVF ×2 (08:44→20:14)
--- NOTE | 2022-05-22 10:11 | PM.IMHP1 ---
Hospitalist- H&P: HPI History of Present Illness Date Seen: 06/02/22 Chief complaint: Fall Narrative: Miguel Angel Bruno is a 61 year old male with past medical history of Follicular Non Hodgkin's Lymphoma presenting for evaluation of fall. The patient was outside on deck yesterday at his home. It was icy, he slipped and fell on his back. Denies hitting his head. He presented to [place] ED. Notable workup included CT thoracic spine which showed Small fractured anterior osteophyte at the level of T7. No acute vertebral body compression fracture, no evidence of traumatic malalignment. His case was discussed with [facility] who recommended TLSO Bracing. He was admitted for pain control. He continues to have spastic lower back pain. He denies loss of bowel or bladder function. Denies lower extremity neuropathy. Denies chest pain and SOB. He continues to be bedrest. CT AP IMPRESSION: 1. No evidence of acute visceral traumatic injury within the chest, abdomen, or pelvis. 2. Stable mesenteric and retroperitoneal lymphadenopathy, compatible with history of lymphoma. CT Cervical Thoracic Lumbar spine IMPRESSION: No acute displaced fracture or traumatic malalignment of the lumbar spine. IMPRESSION: Small fractured anterior osteophyte at the level of T7. No acute vertebral body compression fracture, no evidence of traumatic malalignment. IMPRESSION: 1. No acute fracture or traumatic subluxation. 2. Mild multilevel cervical spondylosis. Review of Systems Status of ROS: Reports: 10 or more systems reviewed and unremarkable except as noted in History and below [facility] Medical History (Updated 06/01/22 @ 00:01 by ) Fall Follicular lymphoma grade I Lymphoma Social History Highest level of school completed/degree received: Associate degree: academic program Smoking Status: Never smoker Do you use any of these nicotine containing products: None Second hand tobacco smoke exposure: No How often do you have a drink containing alcohol: 2-3 times a week Alcohol type: beer How many standard drinks containing alcohol do you have on a typical day: 3 or 4 How often do you have six or more drinks on one occasion: Never AUDIT-C Alcohol total score: 4 Non-prescribed substance use: denies use Caffeine: Yes (4 cups per day) service: Yes Meds Home Medications and Allergies Allergies Allergy/AdvReac Type Severity Reaction Status Date / Time No Known Drug Allergies Allergy Verified 02/21/22 16:04 Exam Narrative: Exam Narrative: Gen: no acute distress HEENT: NCAT EOMI mmm Neck: Supple CV: RRR normal s1 s2 Lungs: CTAB Abd: Soft,nt, nd Neuro: Alert, oriented, CN grossly intact; nonfocal screening?exam Psych: appropriate affect MSK: age appropriate muscle mass Skin; Warm, dry no rash on face Const: Vital Signs, click to edit/add: Vital Signs - 24 hr 05/21/22 20:06 05/21/22 21:30 05/21/22 21:00 Temperature 97.3 F L Pulse Rate Pulse Rate [Left P ulse Oximeter] 64 68 69 Pulse Rate [Left R adial] Respiratory Rate 22 20 20 Blood Pressure [Ri ght Arm] Blood Pressure [Ri ght Upper Arm] 95/76 118/78 110/77 Pulse Oximetry 92 93 93 Oxygen Delivery Mo thod Room Air Room Air Room Air 05/21/22 20:30 05/21/22 22:48 05/21/22 22:48 Temperature Pulse Rate Pulse Rate [Left P ulse Oximeter] 63 Pulse Rate [Left R adial] Respiratory Rate 18 Blood Pressure [Ri ght Arm] Blood Pressure [Ri ght Upper Arm] 109/71 Pulse Oximetry 94 92 92 Oxygen Delivery Mo thod Room Air Room Air 05/21/22 23:30 05/22/22 04:12 05/22/22 04:12 Temperature 97 F L 97 F L Pulse Rate Pulse Rate [Left P ulse Oximeter] 63 Pulse Rate [Left R adial] 70 70 Respiratory Rate 20 16 16 Blood Pressure [Ri ght Arm] 118/80 118/80 Blood Pressure [Ri ght Upper Arm] 123/69 Pulse Oximetry 93 93 93 Oxygen Delivery Mo thod Room Air Room Air Room Air 05/22/22 04:20 05/22/22 04:26 05/22/22 04:27 Temperature 97 F L Pulse Rate 75 Pulse Rate [Left P ulse Oximeter] Pulse Rate [Left R adial] Respiratory Rate Blood Pressure [Ri ght Arm] Blood Pressure [Ri ght Upper Arm] Pulse Oximetry 93 Oxygen Delivery Mo thod Room Air Hospitalist - H&P: Result Labs Labs: Short CBC 05/21/22 Range/Units 20:39 WBC 14.60 H (4.50-11.00) K/uL Hgb 16.5 (13.5-17.5) gm/dL Hct 50.9 (37.0-53.0) % Plt Count 125 L (140-440) K/uL BMP 05/21/22 20:39 Sodium 138 Potassium 3.7 Chloride 106 Carbon Dioxide 23 BUN 16 Creatinine 1.0 Glucose 127 H Calcium 8.6 Cardiac Enzymes 05/21/22 Range/Units 20:39 Troponin I < 0.01 L (0.01-0.04) ng/mL Liver Function 05/21/22 Range/Units 20:39 Total Bilirubin 0.4 (0.1-1.5) mg/dL Direct Bilirubin 0.2 (0.0-0.5) mg/dL AST 65 H (12-35) U/L ALT 61 H (4-50) U/L Alkaline Phosphatase 50 (40-150) U/L Albumin 4.4 (3.3-5.0) g/dL Assessment and Plan Assessment and plan (1) Closed T7 fracture: Problem comment: - MRI 05/23: 1. Bony edema extending throughout the right superolateral corner of the T7 vertebral body, corresponding to the nondisplaced fracture noted on CT. No vertebral compression or cortical retropulsion. 2. No other acute osseous abnormality identified. No significant neural foraminal or spinal canal stenosis. 3. Small left, trace right pleural effusions. - TLSO recommended, was measured and placed during stay Status: Acute (2) Muscle spasm: Problem comment: - tolerating current medications for pain management and muscle spasms Status: Resolved Plan Assessment: Miguel Angel Bruno is a 61 year old male with past medical history of Follicular Non Hodgkin's Lymphoma presenting for evaluation of fall. The patient was outside on [facility] yesterday at his home. It was icy, he slipped and fell on his back. He presented to [place] ED. Notable workup included CT thoracic spine which showed Small fractured anterior osteophyte at the level of T7. No acute vertebral body compression fracture, no evidence of traumatic malalignment. His case was discussed with [facility] who recommended TLSO Bracing. He was admitted for pain control. 1. Mechanical Fall; Small fractured anterior osteophyte at the level of T7 2. Hx of Non Follicular Hodgkin's Lymphoma Plan -admit to observation -pain control -bedrest for now until able to get TLSO -anticipated discharge tomorrow once he gets brace
[2022-05-22] MEDS: CYCLOBENZAPRINE HCL 10 MG TABLET PO ×2 (10:56→20:13)
[2022-05-22] MEDS: ACETAMINOPHEN 325 MG TABLET 500 MG PO ×2 (15:18→20:13)
[2022-05-22] MEDS: OXYCODONE 5 MG TABLET PO ×2 (15:19→19:18)
--- NOTE | 2022-05-22 18:36 | PC.NURSE ---
Pt alert and oriented this shift. C/o 7-10 pain to lower back at times radiating to abd sides. PRN Percocet admin in AM, then new order for PRN Flexeril, Oxycodone and scheduled Tylenol. Pt very sleepy in afternoon, PRN Oxycodone and scheduled Tylenol more effective along with aqua K pad on low temp to back, pt continuing to deny need for further PRN. Pt on bedrest, using urinal in bed. Commode available in room, MD states ok for pt to pivot to bedside commode, pt to get fitted for back brace likely tomorrow. at bedside most of the day. Vitals stable, placed on 2L of O2 via NC to remain O2 sats >90%.Pt ate large lunch then declined dinner, adequate PO intake. Washed up and lotion applied to abd sides. Pt has call light within reach, uses appropriately.
[2022-05-23] VITALS (8 sets, daily range): BP systolic 109–141; BP diastolic 77–94; PULSE 59–83; RESP 12–20; TEMP 36.5–37.3; O2SAT 90–94
--- NOTE | 2022-05-23 02:59 | PC.NURSE ---
Addendum entered by Agapito Rayo RN 05/23/22 05:37: Pt recently had coughing spell, thus oxycodone given for pain, passing gas now thus refused need for bm meds. Original Note: : Pt drowsy/resting well, refusing need for pain medication, using aqua k and t&r, although poor tolerance with activity due to holding breathe r/t pain, encouraged tcdb, remains on 2lpm of oxygen via nc oximetry 90%.
[2022-05-23] MEDS: OXYCODONE 5 MG TABLET PO ×5 (04:58→21:00)
[2022-05-23] MEDS: ENOXAPARIN 40 MG/0.4 ML INJ SUBCUT (04:58)
[2022-05-23] MEDS: CYCLOBENZAPRINE HCL 10 MG TABLET PO ×2 (07:55→17:10)
[2022-05-23] MEDS: ACETAMINOPHEN 500 MG TABLET PO ×3 (08:57→21:00)
--- NOTE | 2022-05-23 11:09 | CRLHL7_ITS ---
For Patients: As a result of the Century Cures Act, medical imaging exams and procedure reports are released immediately into your electronic medical record. You may view this report before your referring provider. If you have questions, please contact your health care provider. Indication: Concern for T7 compression fracture on prior CT Technique: Multiplanar, multisequence MRI of the thoracic spine, obtained without contrast. Comparison: CT thoracic spine 05/21/2022 Findings: Normal static alignment of the thoracic spine. No significant spondylolisthesis. Thin anterolateral bridging syndesmophytes are noted throughout the thoracic spine, with bony edema extending throughout the right superolateral corner of the T7 vertebral body, corresponding to the nondisplaced fracture noted on prior CT. No vertebral compression or cortical retropulsion. No other acute osseous abnormality identified. Presumed mild degenerative Modic type 1 marrow signal changes along the T10 inferior endplate. No significant disc bulges or protrusions. No evidence of significant neural foraminal or spinal canal stenosis. Shallow central disc protrusion is noted at T7-8. No evidence of significant neuroforaminal or spinal canal stenosis in the thoracic spine. The visualized spinal cord appears normal in course, caliber, and intrinsic signal. The prevertebral and paraspinal soft tissues are unremarkable. Small left, trace right pleural effusions. Impression: 1. Bony edema extending throughout the right superolateral corner of the T7 vertebral body, corresponding to the nondisplaced fracture noted on CT. No vertebral compression or cortical retropulsion. 2. No other acute osseous abnormality identified. No significant neural foraminal or spinal canal stenosis. 3. Small left, trace right pleural effusions. Dictated by Shayla Hatfield MD @ 05/23/2022 1:19:08 PM (Electronically Signed)
[2022-05-23] MEDS: SENNOSIDES/DOCUSATE TABLET 1 TAB PO (11:23)
--- NOTE | 2022-05-23 12:02 | PM.IMPN1 ---
Progress Note: A&P Assessment and plan (1) Closed T7 fracture: Problem details: - MRI 05/23 per Radiologist recommendation, results pending - TLSO recommended, should be measured for this today Status: Acute (2) Muscle spasm: Problem details: - tolerating current medications for pain management and muscle spasms Status: Acute (3) Follicular lymphoma grade I: Problem details: - quiescent, continue outpatient f/u Status: Acute (4) Hypoxia: Problem details: - intermittent, requiring occasional supplemental oxygen - continue IS, monitor closely for signs of respiratory depression on opiates Status: Acute Plan - per above - Lovenox for ppx - home with when TLSO obtained, pending MRI results Subjective Date Seen: 05/23/22 Interval history: No acute events overnight. Patient continues to have back pain with movement, medications are helping symptoms. Amenable to T-spine MRI today (as recommended by radiologist). Miguel Angel is intermittently requiring low-dose supplemental oxygen, likely combination of iatrogenic and positional sources. He has remained afebrile and is utilizing IS regularly. Not eating much 2/2 abdominal bloating. No BM x2 days, + flatus. Exam Narrative: Exam Narrative: GEN: Alert and oriented, laying comfortably in bed HEENT: Normal external ears, EOMIs bilaterally, no scleral icterus CV: RRR, No concerning murmurs, rubs, or gallops R: Breathing comfortably, air movement adequate without concerning wheezes Ab: mildly distended, no ttp, bowel sounds present but hypoactive Ext: wwp, no concerning edema Skin: No concerning skin lesions or rashes on exposed skin Neuro: Nonfocal Psych: Appropriate Const: Vital Signs, click to edit/add: Vital Signs - 24 hr 05/22/22 15:00 05/22/22 15:00 05/22/22 15:00 Temperature 98.2 F Pulse Rate [Left R adial] 74 Respiratory Rate 18 Blood Pressure [Ri ght Arm] 133/76 Pulse Oximetry 91 92 91 Oxygen Delivery Me thod Nasal Cannula Nasal Cannula Oxygen Flow Rate 2 2 05/22/22 15:00 05/22/22 19:22 05/22/22 20:13 Temperature 98.2 F 98.2 F 98.2 F Pulse Rate [Left R adial] 74 78 Respiratory Rate 18 16 Blood Pressure [Ri ght Arm] 133/76 122/73 Pulse Oximetry 91 90 Oxygen Delivery Me thod Nasal Cannula Nasal Cannula Oxygen Flow Rate 2 2 05/22/22 22:54 05/23/22 00:19 05/22/22 23:00 Temperature 97.9 F Pulse Rate [Left R adial] 78 Respiratory Rate 20 20 Blood Pressure [Ri ght Arm] 116/78 Pulse Oximetry 90 90 90 Oxygen Delivery Me thod Nasal Cannula Nasal Cannula Oxygen Flow Rate 2 2 05/23/22 00:25 05/23/22 02:56 05/23/22 07:00 Temperature 98 F 99.2 F Pulse Rate [Left R adial] 78 83 65 Respiratory Rate 20 18 18 Blood Pressure [Ri ght Arm] 109/89 141/94 H Pulse Oximetry 90 90 Oxygen Delivery Me thod Room Air Nasal Cannula Oxygen Flow Rate 2 2.5 05/23/22 07:00 05/23/22 07:00 05/23/22 07:00 Temperature Pulse Rate [Left R adial] 65 Respiratory Rate 18 18 Blood Pressure [Ri t Arm] Pulse Oximetry 90 90 Oxygen Delivery Me thod Nasal Cannula Oxygen Flow Rate 2.5 05/23/22 11:00 Temperature 98.5 F Pulse Rate [Left R adial] 59 L Respiratory Rate 12 Blood Pressure [Ri ght Arm] 128/79 Pulse Oximetry 90 Oxygen Delivery Me thod Nasal Cannula Oxygen Flow Rate 1.5
--- NOTE | 2022-05-23 14:53 | PC.NURSE ---
End of Shift: Patient pleasant and cooperative. Patient vitally stable, lungs clear, BS WNL, IV intact. Patient on 1.5L of oxygen NS with sats 90-91%. Patient cannot breath too deep as it causes back pain. Aerobika given to patient to help cough up morning phlegm as it hurts his back to cough hard. Patient has rated pain 5-6/10. Flexoril given once, 10 mg of oxy given once, and 5 mg of oxy given once. Orthoptic transportation refrigeration technician came to fit patient to his back brace. Patient is now using back brace and can sit up higher with back brace. Patient tolerating regular diet and urinating. No BM.
--- NOTE | 2022-05-23 18:41 | PC.NURSE ---
Nursing Care Hours: [id number] Pt this shift calm and cooperative. Alert and oriented. rated pain 5/10 at rest, 7/10 with ambulation to bathroom, treated per eMAR and effective. Pt tolerating increased mobility with the brace on, SB assist only. Refused dinner order d/t still feeling full from lunch and has leftovers. Continues to c/o of headache in the right frontal lobe, though decreased to minimal discomfort around 1830 per pt. Does c/o feeling warm and flushed. Temporal temperature 99.0. No c/o throat pain or stuffiness.
[2022-05-24 03:00] VITALS: BP 123/86; RESP 18; TEMP 36.5
[2022-05-24 06:24] LABS: Basophils Percent Auto 0.3 % (0.0-3.0); Eosinophils Percent Auto 1.4 % (0.0-7.0); Hematocrit 47.7 % (37.0-53.0); Immature Granulocytes Pct Auto 0.5 %; Mean Corpuscular HGB Conc 34 gm/dL (32-36); Mean Corpuscular Hemoglobin 30 pg (26-34); Mean Corpuscular Volume 90 fL (80-100); Monocytes Percent Auto 9.1 % (0.0-11.0); Neutrophils Percent Auto 78.7 % (42.0-72.0); Platelet Count* 241 K/uL (140-440); Red Blood Count 5.32 m/uL (4.30-5.90); White Blood Count* 11.45 K/uL (4.50-11.00)
[2022-05-24 06:26] LABS: Slide Review Reflex No
[2022-05-24 06:39] LABS: Chloride* 100 mmol/L (96-114); Potassium* 4.3 mmol/L (3.6-5.1); Sodium* 137 mmol/L (135-149)
[2022-05-24 06:42] LABS: Blood Urea Nitrogen* 15 mg/dL (7-30); Carbon Dioxide* 31 mmol/L (20-32); Est. Creatinine Clearance* 70.69; Estimated Glomerular Filt Rate 85 ml/min; Glucose* 111 mg/dL (60-115)
[2022-05-24 06:43] LABS: Calcium* 9.3 mg/dL (8.4-10.6)
[2022-05-24 07:00] VITALS: BP 145/86; PULSE 78; RESP 18; TEMP 36.9; O2SAT 90
--- NOTE | 2022-05-24 07:00 | PC.NURSE ---
VSS on 1.5 L of O2. Patient is alert and oriented x4, uses call light appropriately. Pain managed with scheduled Tylenol and PRN Oxycodone. SBA with walker, uses urinal at bedside. Patient is regular diet. Appears stable, call light within reach.
[2022-05-24] MEDS: SENNOSIDES/DOCUSATE TABLET 1 TAB PO (07:48)
[2022-05-24] MEDS: OXYCODONE 5 MG TABLET PO (07:48)
[2022-05-24] MEDS: CYCLOBENZAPRINE HCL 10 MG TABLET PO (07:48)
--- NOTE | 2022-05-24 10:01 | RESP.RT ---
Pt using oxygen occasionally. Encouraging IS and coughing.
--- NOTE | 2022-05-24 10:21 | PM.DS1 ---
DS: Providers Provider Date Seen: 05/24/22 Date of admission: 05/22/22 01:50 Primary care physician: RICKIE LI DO Admitting Clinician: Hector Marroquin MD Consults: PT, OT, RT Attending Physician on discharge: Helga Becker MD Date of Discharge: 05/24/22 DS: Diagnosis Discharge Diagnosis (1) Closed T7 fracture: Status: Acute Problem details: - MRI 05/23: 1. Bony edema extending throughout the right superolateral corner of the T7 vertebral body, corresponding to the nondisplaced fracture noted on CT. No vertebral compression or cortical retropulsion. 2. No other acute osseous abnormality identified. No significant neural foraminal or spinal canal stenosis. 3. Small left, trace right pleural effusions. - TLSO recommended, was measured and placed during stay (2) Muscle spasm: Status: Acute Problem details: - tolerating current medications for pain management and muscle spasms (3) Follicular lymphoma grade I: Status: Acute Problem details: - quiescent, continue outpatient f/u (4) Hypoxia: Status: Acute Problem details: - intermittent, required occasional supplemental oxygen - seen by RT, no home O2 required - continue IS upon discharge, educated patient and about concerning s/sx of hypoxia DS: Summary Hospital Course Hospital Course: Miguel Angel is a very pleasant 61-year-old male who was admitted to the hospital after a fall at home that resulted in a T6 fracture. This was diagnosed via ED CT scan, followed by MRI to ensure no extension of fracture. Miguel Angel noted intermittent numbness of right anterior thigh on day of discharge; exam reassuring. Reviewed normal L spine images, anticipate these symptoms will improve as ambulation improves (query element of meralgia paresthetica secondary to body habitus + brace) Patient was seen by therapies during stay, TLSO placed. Pain managed with oral medication, and patient was medically cleared for discharge on 05/24. He will see Dr[facility] Nuno [facility] in followup, as well as his PCP. Status at Discharge Overall status at discharge: patient is progressing back to baseline Time Spent with Patient Time attestation: Total time spent providing and/or coordinating discharge services: Time spent: Greater than 30 minutes Specific discharge activities: Outpatient appointments and referrals, medication reconciliation, documentation Exam Narrative: Exam Narrative: GEN: Alert and oriented, answering questions appropriately HEENT: EOMIs bilaterally, no scleral icterus, oropharynx moist and clear CV: RRR, No concerning murmurs, rubs, or gallops R: LCTA bilaterally without concerning wheezing, air movement adequate Back: wearing TLSO brace Ext: wwp, no concerning edema Skin: No concerning skin lesions or rashes on exposed skin Neuro: Normal and symmetric DTRs at patella bilaterally, normal plantar flexion bilaterally, normal sensation at bilateral lower extremities Psych: Appropriate Const: Vital Signs, click to edit/add: Vital Signs - 24 hr 05/23/22 11:00 05/23/22 15:00 05/23/22 15:00 Temperature 98.5 F Pulse Rate [Left R adial] 59 L 65 Respiratory Rate 12 12 Blood Pressure [Le ft Arm] Blood Pressure [Ri ght Arm] 128/79 Pulse Oximetry 90 91 Oxygen Delivery Me thod Nasal Cannula Oxygen Flow Rate 1.5 05/23/22 15:00 05/23/22 15:00 05/23/22 19:00 Temperature 98.6 F 98 F Pulse Rate [Left R adial] 65 70 Respiratory Rate 20 20 18 Blood Pressure [Le ft Arm] 132/78 140/82 H Blood Pressure [Ri ght Arm] Pulse Oximetry 91 91 94 Oxygen Delivery Me thod Nasal Cannula Nasal Cannula Room Air Oxygen Flow Rate 1.5 1.5 05/23/22 23:00 05/23/22 23:00 05/23/22 23:00 Temperature 97.7 F Pulse Rate [Left R adial] 70 66 Respiratory Rate 18 18 Blood Pressure [Le ft Arm] 118/77 Blood Pressure [Ri ght Arm] Pulse Oximetry 92 92 Oxygen Delivery Me thod Nasal Cannula Nasal Cannula Oxygen Flow Rate 1.5 05/24/22 03:00 05/24/22 07:00 05/24/22 07:00 Temperature 97.7 F Pulse Rate [Left R adial] 78 Respiratory Rate 18 18 Blood Pressure [Le ft Arm] 123/86 Blood Pressure [Ri ght Arm] 123/86 Pulse Oximetry 90 Oxygen Delivery Me thod Nasal Cannula Oxygen Flow Rate 05/24/22 07:00 05/24/22 07:00 Temperature 98.5 F Pulse Rate [Left R adial] 78 Respiratory Rate 18 18 Blood Pressure [Le ft Arm] 145/86 H Blood Pressure [Ri ght Arm] Pulse Oximetry 90 90 Oxygen Delivery Me thod Room Air Room Air Oxygen Flow Rate DS: Data Data Completed and Pending Labs on day of discharge: Labs from last 24 hours 05/24/22 05/24/22 05:43 05:43 WBC 11.45 H RBC 5.32 Hgb 16.0 Hct 47.7 MCV 90 MCH 30 MCHC 34 RDW Coeff of [place] 13.0 Plt Count 241 Neut % (Auto) 78.7 H Lymph % (Auto) 10.0 L L[place] % (Auto) 9.1 Eos % (Auto) 1.4 Baso % (Auto) 0.3 Neut # (Auto) 9.00 H Lymph # (Auto) 1.10 Loving # (Auto) 1.00 H Eos # (Auto) 0.20 Baso # (Auto) 0.00 Sodium 137 Potassium 4.3 Chloride 100 Carbon Dioxide 31 BUN 15 Creatinine 1.0 Estimated Creat Clear 70.69 Estimated GFR 85 Glucose 111 Calcium 9.3 Discharge Plan Discharge Disposition: Home, Self-Care Date of Admission: 05/22/22 01:50 Attending Provider on Discharge: Helga Becker Primary Care Provider: RICKIE LI Condition: Stable Anticipated Discharge Date/Time: 05/24/22 12:00 Discharge Medications: New cyclobenzaprine 10 mg tablet 10 mg PO TID PRN (Reason: muscle spasm) Qty: 10 0RF sennosides-docusate sodium [Stool Softener-Laxative] 8.6-50 mg Tablet 1 tab PO DAILY Qty: 30 0RF Rx Instructions: take on days you are taking oxycodone to prevent/treat constipation oxycodone 5 mg Tablet 5 mg PO Q6H PRN (Reason: Pain) Qty: 20 0RF Rx Instructions: take as needed for severe pain, may cause drowsiness Discharge Orders: Discharge Order (Routine); Ordered 05/24/22 Ordered By: Helga Becker Patient Education: Cyclobenzaprine (By mouth) (Flexeril, Amrix, Fexmid, FusePaq Tabradol), Oxycodone, Rapid Release (By mouth), Laxative, Stimulant Combination (By mouth) (Amanda-Colace, Doc-Q-Lax,..., Vertebral Compression Fracture (DC), Back Pain (GEN), Fall Prevention (DC) Additional Instructions: Buy 500mg Tylenol and take 2 of these (1000mg) every 8 hours, SCHEDULED, for pain control. You can also take 600mg of Ibuprofen every 8 hours (with the Tylenol, or in between doses) - take the Ibuprofen with food. For muscle spasms, take the Cyclobenzaprine as needed (every 8 hours), and take the Oxycodone for severe pain in between Tylenol and Ibuprofen dosing. Both Cyclobenzaprine and Oxycodone can make you tired, so keep an eye on breathing if you're taking these. Activity Level: Light activity and Wear Brace Activity Detail: per PT and OT Discharge Diet: Regular Diet Detail: Make sure you're eating food with fiber and probiotics (sauerkraut!) to help with constipation and bloating from pain meds. Follow Up Appointments: Severo Ivory MD [Staff Physician] - Claus Nuno MD [Staff Physician] - 06/16/22 1:00 pm RICKIE LI DO [Primary Care Provider] - 05/27/22 11:25 am Forms: [employer] Info Instructions
[2022-05-24 10:24] VITALS: PULSE 75; RESP 18; TEMP 36.9
[2022-05-24] MEDS: ACETAMINOPHEN 500 MG TABLET PO (10:35)
[2022-05-24 11:00] VITALS: BP 118/80; PULSE 80; RESP 20; O2SAT 89
[2022-05-24 12:49] VITALS: BP 118/8; PULSE 80; RESP 20
--- NOTE | 2022-05-24 12:56 | PC.NURSE ---
Nursing Care Hours: [id number] Pt this shift calm and cooperative, alert and oriented. SB assist with transfers. Max pain reported 6/10, treated per eMAR, effective. VSS, tolerating room air, using IS and areobika. LS clear, afebrile. No IV to dc. Discharge instructions went over with pt and spouse. All questions and concerns addressed. Pt ambulated with 4 wheel walker out to vehicle, able to step up into truck with SB assist. Pt left in stable condition.
== END 2022-05-24 12:30 | disposition home or self-care (01) ==
LOC: ED 05-22 00:26 → MEDSURG 05-22 03:37
PROVIDERS: Emergency Medicine; Family Medicine; Admitting Provider Family Medicine; Emergency Provider Family Medicine; PCP Student in an Organized Health Care Education/Training Program; Visit Provider Family Medicine
DX: S22.061A Stable burst fracture of T7-T8 vertebra, initial encounter for closed fracture (principal); M62.838 Other muscle spasm; J90 Pleural effusion, not elsewhere classified; C82.00 Follicular lymphoma grade I, unspecified site; R74.01 Elevation of levels of liver transaminase levels; D72.829 Elevated white blood cell count, unspecified; R59.1 Generalized enlarged lymph nodes; R94.5 Abnormal results of liver function studies; R09.02 Hypoxemia; S39.92XA Unspecified injury of lower back, initial encounter; W19.XXXA Unspecified fall, initial encounter; Y93.29 Activity, other involving ice and snow; M54.9 Dorsalgia, unspecified; R10.31 Right lower quadrant pain; R07.81 Pleurodynia; R07.89 Other chest pain; R91.8 Other nonspecific abnormal finding of lung field; I10 Essential (primary) hypertension; Z20.822 Contact with and (suspected) exposure to COVID-19
CPT/HCPCS: 36415; 71260; 72125; 72128; 72131; 72146; 74177; 80048; 80076; 81001; 82565; 83690; 84484; 85025; 87631; 94761; 96361; 96372; 96374; 96375; 96376; 97116; 97161; 97165; 97530; 99199; 99285; G0378; A9270; J1170; J1650; J1885; J2060; J2270; J2405; J7030; Q9967

== ENCOUNTER 2022-09-16 10:30 | Outpatient (RCR) | payer BC, OTHER, SELFPAY | END 2023-01-14 23:59 | disposition home or self-care (01) | PROVIDERS: PCP Student in an Organized Health Care Education/Training Program; Visit Provider Family Medicine | DX: S22.069A Unspecified fracture of T7-T8 vertebra, initial encounter for closed fracture (principal); M54.6 Pain in thoracic spine; M62.81 Muscle weakness (generalized); Z74.09 Other reduced mobility; Z51.89 Encounter for other specified aftercare | CPT/HCPCS: 97110; 97112; 97161; 97530 ==

== ENCOUNTER 2023-03-01 07:29 | Outpatient (CLI) | payer BC, OTHER, SELFPAY ==
--- NOTE | 2023-03-01 08:00 | CRLHL7_ITS ---
For Patients: As a result of the Century Cures Act, medical imaging exams and procedure reports are released immediately into your electronic medical record. You may view this report before your referring provider. If you have questions, please contact your health care provider. Indication: Follicular lymphoma Technique: CT Abdomen/Pelvis W ISOVUE 370 Please note that all CT scans at this facility use dose modulation, iterative reconstruction, and/or weight-based dosing when appropriate to reduce radiation dose to as low as reasonably achievable. Comparison: 05/21/2022 Findings: Improved aeration within the lower lobes. Mild residual atelectasis. No pleural effusion. No free intraperitoneal air. Diffuse low attenuation of the hepatic parenchyma. No intrahepatic mass. No ascites. The gallbladder is normal. No calcified gallstones or biliary obstruction. The spleen is normal. Normal adrenal glands. The kidneys are normal. Pancreas normal. The bladder is normal. The prostate is heterogeneous with a hyperdense nodule superiorly. Mild mass effect upon the inferior bladder. Sigmoid diverticulosis. No diverticulitis. No bowel obstruction. Appendix normal. Retroperitoneal adenopathy is similar with numerous lymph nodes measuring up to 2.9 cm. Associated stranding also similar. No fluid collection or abscess. No fracture. Facet degeneration lower lumbar spine without spondylolisthesis. Impression: No significant interval change in bulky retroperitoneal upper abdominal adenopathy measuring up to 2.9 cm. No splenomegaly or ascites. Diffuse hepatic steatosis. Please note that all CT scans at this facility use dose modulation, iterative reconstruction, and/or weight-based dosing when appropriate to reduce radiation dose to as low as reasonably achievable. Dictated by Agapito Zuniga MD @ 03/01/2023 12:49:57 PM (Electronically Signed)
== END 2023-03-01 07:30 | disposition home or self-care (01) ==
LOC: CT 07:30
PROVIDERS: PCP Student in an Organized Health Care Education/Training Program; Visit Provider Internal Medicine Medical Oncology
DX: C82.00 Follicular lymphoma grade I, unspecified site (principal); K76.0 Fatty (change of) liver, not elsewhere classified
CPT/HCPCS: 74177; Q9967

== ENCOUNTER 2023-03-31 08:00 | Outpatient (RCR) | payer BC, OTHER, SELFPAY ==
--- NOTE | 2023-02-07 10:43 | PC.NURSE ---
Pt called to confirm his lab and MD appts. RN noted that CT scan is scheduled for 03/01/2023 and MD appt on 03/06/2023. Reviewed MD notes and orders. Scheduled pt for labs at 0745 on 03/01/[address] scan. Confirmed pt's MD appt date/time. No further questions.
[2023-03-01 07:53] LABS: Basophils Absolute Auto 0.06 K/uL (0.00-0.30); Basophils Percent Auto 0.7 % (0.0-3.0); Eosinophils Percent Auto 3.4 % (0.0-7.0); Hematocrit 50.8 % (37.0-53.0); Hemoglobin* 16.9 gm/dL (13.5-17.5); Immature Granulocytes Abs Auto 0.18 K/uL (0.00-0.30); Immature Granulocytes Pct Auto 2.1 %; Lymphocytes Percent Auto 18.7 % (20-44); Mean Corpuscular HGB Conc 33 gm/dL (32-36); Mean Corpuscular Hemoglobin 30 pg (26-34); Mean Corpuscular Volume 90 fL (80-100); Monocytes Percent Auto 7.9 % (0.0-11.0); Neutrophils Absolute Auto 5.88 K/uL (1.7-7.0); Neutrophils Percent Auto 67.2 % (42.0-72.0); Platelet Count* 243 K/uL (140-440); RDW Coefficient of Variation % 13.4 % (11.5-15.5); Red Blood Count 5.63 m/uL (4.30-5.90); White Blood Count* 8.75 K/uL (4.50-11.00)
[2023-03-01 07:54] LABS: Slide Review Reflex No
[2023-03-01 08:04] LABS: Albumin* 5.1 g/dL (3.3-5.0); Chloride* 104 mmol/L (96-114)
[2023-03-01 08:05] LABS: Potassium* 4.7 mmol/L (3.6-5.1); Sodium* 142 mmol/L (135-149)
[2023-03-01 08:07] LABS: Alanine Aminotransferase* 59 U/L (4-50); Alkaline Phosphatase* 54 U/L (40-150); Anion Gap 10 mEq/L (7-15); Aspartate Amino Transferase* 50 U/L (12-35); Bilirubin Total* 0.5 mg/dL (0.1-1.5); Blood Urea Nitrogen* 19 mg/dL (7-30); Carbon Dioxide* 28 mmol/L (20-32); Estimated Glomerular Filt Rate 84 ml/min; Glucose* 110 mg/dL (60-115); Lactate Dehydrogenase* 223 U/L (120-246); Total Protein* 8.4 g/dL (6.0-8.3)
[2023-03-01 08:08] LABS: Calcium* 9.8 mg/dL (8.4-10.6)
[2023-03-31 08:36] LABS: Total Protein* 8.2 g/dL (6.0-8.3)
[2023-04-03 10:51] LABS: Albumin 4.53 g/dL (3.75-5.01); Alpha 1 Globulin 0.31 g/dL (0.19-0.46); Alpha 2 Globulin 0.68 g/dL (0.48-1.05); Total Protein, Serum 7.3 g/dL (6.3-8.2)
== END 2023-08-28 23:59 | disposition home or self-care (01) ==
LOC: CCIC 08:00
PROVIDERS: Internal Medicine Medical Oncology; PCP Student in an Organized Health Care Education/Training Program; Referring Provider Student in an Organized Health Care Education/Training Program; Visit Provider Internal Medicine Hematology & Oncology
DX: C82.00 Follicular lymphoma grade I, unspecified site (principal)
CPT/HCPCS: 36415; 80053; 83615; 84155; 84165; 85025; 99212; 99213; 99214

== ENCOUNTER 2023-10-03 08:00 | Outpatient (RCR) | payer BC, OTHER, SELFPAY ==
[2023-08-29 10:11] LABS: Basophils Absolute Auto 0.04 K/uL (0.00-0.30); Basophils Percent Auto 0.5 % (0.0-3.0); Eosinophils Absolute Auto 0.18 K/uL (0.00-0.50); Eosinophils Percent Auto 2.1 % (0.0-7.0); Hematocrit 51.2 % (37.0-53.0); Hemoglobin* 17.2 gm/dL (13.5-17.5); Immature Granulocytes Abs Auto 0.05 K/uL (0.00-0.30); Immature Granulocytes Pct Auto 0.6 %; Lymphocytes Percent Auto 21.9 % (20-44); Mean Corpuscular HGB Conc 34 gm/dL (32-36); Mean Corpuscular Hemoglobin 30 pg (26-34); Mean Corpuscular Volume 89 fL (80-100); Monocytes Percent Auto 7.8 % (0.0-11.0); Neutrophils Absolute Auto 5.83 K/uL (1.7-7.0); Neutrophils Percent Auto 67.1 % (42.0-72.0); Platelet Count* 247 K/uL (140-440); RDW Coefficient of Variation % 13.2 % (11.5-15.5); Red Blood Count 5.76 m/uL (4.30-5.90); White Blood Count* 8.68 K/uL (4.50-11.00)
[2023-08-29 10:13] LABS: Slide Review Reflex No
[2023-08-29 10:23] LABS: Albumin* 5.4 g/dL (3.3-5.0); Chloride* 104 mmol/L (96-114); Potassium* 5.4 mmol/L (3.6-5.1); Sodium* 139 mmol/L (135-149)
[2023-08-29 10:26] LABS: Alanine Aminotransferase* 67 U/L (4-50); Alkaline Phosphatase* 61 U/L (40-150); Anion Gap 7 mEq/L (7-15); Aspartate Amino Transferase* 67 U/L (12-35); Bilirubin Total* 0.9 mg/dL (0.1-1.5); Blood Urea Nitrogen* 18 mg/dL (7-30); Carbon Dioxide* 28 mmol/L (20-32); Estimated Glomerular Filt Rate 84 ml/min; Glucose* 105 mg/dL (60-115); Lactate Dehydrogenase* 242 U/L (120-246); Total Protein* 8.9 g/dL (6.0-8.3)
[2023-08-29 10:27] LABS: Calcium* 9.6 mg/dL (8.4-10.6)
--- NOTE | 2023-08-30 14:39 | ONC.NURNOTE ---
Lab results noted : Patient was asked about diet he eats potatoes every day and has been eating large amounts of venison sticks and fried venison recommended to decrease volume of high potassium containing foods- list reviewed per Dr Ruiz rechdorian CMP in 1 month patient advised to avoid venison and potatoes before his next lab draw
[2023-10-03 08:22] LABS: Albumin* 5.1 g/dL (3.3-5.0); Chloride* 104 mmol/L (96-114); Potassium* 5.1 mmol/L (3.6-5.1); Sodium* 139 mmol/L (135-149)
[2023-10-03 08:25] LABS: Alkaline Phosphatase* 61 U/L (40-150); Anion Gap 9 mEq/L (7-15); Aspartate Amino Transferase* 52 U/L (12-35); Bilirubin Total* 0.9 mg/dL (0.1-1.5); Blood Urea Nitrogen* 19 mg/dL (7-30); Carbon Dioxide* 26 mmol/L (20-32); Estimated Glomerular Filt Rate 84 ml/min; Glucose* 119 mg/dL (60-115); Total Protein* 8.1 g/dL (6.0-8.3)
[2023-10-03 08:26] LABS: Alanine Aminotransferase* 51 U/L (4-50); Calcium* 9.4 mg/dL (8.4-10.6)
[2023-10-06 00:50] LABS: Albumin 4.42 g/dL (3.75-5.01); Alpha 2 Globulin 0.76 g/dL (0.48-1.05); Immunofixation IFE Done; Immunoglobulin A 302 mg/dL (68-408); Immunoglobulin G 850 mg/dL (768-1632); Immunoglobulin M 53 mg/dL (35-263); Kappa Qnt Free Light Chains 21.27 mg/L (3.30-19.40); Kappa/Lambda Light Chain Ratio 1.45 (0.26-1.65); Lambda Qnt Free Light Chains 14.64 mg/L (5.71-26.30); Total Protein, Serum 7.3 g/dL (6.3-8.2)
--- NOTE | 2023-10-09 13:16 | ONC.NURNOTE ---
Labs reviewed by Dr. Ruiz. Per Dr. Ruiz pt should follow up in 6 months with labs. Conference Concierge called pt to inform him that labs were reviewed by Dr. Ruiz and are similar to previous lab value. Pt aware he should follow up in 6 months.
== END 2024-02-25 23:59 | disposition home or self-care (01) ==
LOC: CCIC 08:00
PROVIDERS: PCP Student in an Organized Health Care Education/Training Program; Referring Provider Student in an Organized Health Care Education/Training Program; Visit Provider Internal Medicine Hematology & Oncology
DX: C82.00 Follicular lymphoma grade I, unspecified site (principal)
CPT/HCPCS: 36415; 80053; 82784; 83520; 83615; 84155; 84165; 85025; 86334

== ENCOUNTER 2024-04-19 07:39 | Outpatient (CLI) | payer MEDICARE, OTHER, SELFPAY ==
--- NOTE | 2024-04-19 08:00 | CRLHL7_ITS ---
For Patients: As a result of the Century Cures Act, medical imaging exams and procedure reports are released immediately into your electronic medical record. You may view this report before your referring provider. If you have questions, please contact your health care provider. Indication: YEARLY FOLLOW UP FOR LYMPHOMA Technique: CT Abdomen/Pelvis 109 CC ISOVUE 370 AND WATER PREP Please note that all CT scans at this facility use dose modulation, iterative reconstruction, and/or weight-based dosing when appropriate to reduce radiation dose to as low as reasonably achievable. Comparison: 03/01/2023 Findings: Lung bases are clear. Diffuse low-attenuation of the hepatic parenchyma consistent with fatty infiltration. The spleen is normal in size. Chronic calcifications within the uncinate process of the pancreas. No adrenal nodule. No hydronephrosis. Gallbladder normal. No calcified gallstones or biliary obstruction. Prostate is somewhat heterogeneous with a nodule present superiorly, as before. Mild sigmoid diverticulosis. No bowel obstruction. No free air, free fluid or abscess. Normal appendix. Wall thickening of the 3rd portion of the duodenal is likely similar. Bulky retroperitoneal/central mesenteric adenopathy again noted with multiple lymph nodes measuring up to 2.9 cm, not significantly changed. Surrounding stranding within the adjacent fat noted. Mildly prominent portacaval lymph nodes are similar. Normal inguinal and pelvic sidewall lymph nodes. No fracture. Mild degenerative changes. Impression: No significant interval change in bulky retroperitoneal/central mesenteric adenopathy with surrounding stranding. Stable mildly prominent portacaval lymph nodes. Diffuse hepatic steatosis. Chronic sigmoid diverticulosis. Mild thickening of the 3rd portion of the duodenal as it traverses the adenopathy, possibly related to posttreatment change. Please note that all CT scans at this facility use dose modulation, iterative reconstruction, and/or weight-based dosing when appropriate to reduce radiation dose to as low as reasonably achievable. Dictated by Agapito Zuniga MD @ 04/19/2024 11:16:17 AM (Electronically Signed)
== END 2024-04-19 07:40 | disposition home or self-care (01) ==
LOC: CT 07:39
PROVIDERS: PCP Student in an Organized Health Care Education/Training Program; Visit Provider Internal Medicine Hematology & Oncology
DX: C82.00 Follicular lymphoma grade I, unspecified site (principal); K76.0 Fatty (change of) liver, not elsewhere classified; K57.30 Diverticulosis of large intestine without perforation or abscess without bleeding
CPT/HCPCS: 74177; Q9967

== ENCOUNTER 2024-06-20 14:02 | Outpatient (CLI) | payer MEDICARE, OTHER, SELFPAY ==
--- NOTE | 2024-06-20 14:30 | CRLHL7_ITS ---
For Patients: As a result of the Century Cures Act, medical imaging exams and procedure reports are released immediately into your electronic medical record. You may view this report before your referring provider. If you have questions, please contact your health care provider. PET CT SKULL TO THIGH History: Lymphoma Technique: The patient was injected with 12.7 millicuries of 18F-FDG (fluorodeoxyglucose). Following the appropriate delay interval, PET imaging from the mid brain to the mid thigh was obtained in conjunction with a noncontrast CT examination for improved localization and attenuation correction. The fused volume set was reviewed utilizing 3-D reconstruction. Blood glucose: 79 Comparison: CT abdomen and pelvis 04/19/2024 Findings: Max SUV within the liver today is 3.2 PET: Head and Neck: *9 millimeter left 1B node has a max SUV of 4.2. Thorax: Normal physiologic distribution within the cardiovascular system. No focal areas of increased uptake are noted in the lung pendleton or mediastinum. Abdomen/Pelvis: Abnormal biodistribution with splenic uptake greater than the spleen with a max SUV within the normal-sized spleen of 3.4. +Avid retroperitoneal and mesenteric lymphadenopathy. Samples: Left mid para-aortic node measuring 28 x 27 millimeters has a max SUV of 6.5; previously measured 28 x 28 millimeters. 26 by 14 millimeter left lower paratracheal node has a max SUV of 5.0; previously measured 25 x 13 millimeters. 22 by 16 millimeter mid mesenteric node has a max SUV of 7.9; previously measured 20 by 15 millimeters. 23 by 15 millimeter lower mesenteric node has a max SUV of 6.7; previously measured 24 by 14 millimeters. *focal avidity within the descending colon at the junction of the sigmoid colon where there is associated diverticula with inflammatory stranding has a max SUV of 16.9. *Asymmetric focal avidity is noted within the anatomically stable 13 x 9 millimeter left adrenal adenoma which has a max SUV of 3.5. Bones/soft tissues: No focal areas of increased uptake. ADDITIONAL CT findings include 47 millimeters ascending thoracic aortic ectasia, moderate atherosclerotic calcifications within the LAD, diffuse hepatic steatosis, enlarged prostate, diverticulosis, small fat containing inguinal hernias, and degenerative changes within the spine. IMPRESSION: 1. 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 2. Splenic activation versus infiltration. 3. Subcentimeter mildly avid left neck level 1B node, reactive versus metastasis. Correlate with patient history. 4. Inflammation/infection versus much less likely neoplasm within a single diverticula at the junction of the descending and sigmoid colon. Recommend attention on follow-up PET-CT in 3 months. Dictated by Jude Grant MD @ 06/21/2024 4:26:57 PM (Electronically Signed)
== END 2024-06-20 14:03 | disposition home or self-care (01) ==
LOC: RAD 14:04
PROVIDERS: PCP Student in an Organized Health Care Education/Training Program; Visit Provider Internal Medicine Hematology & Oncology
DX: C82.03 Follicular lymphoma grade I, intra-abdominal lymph nodes (principal); R59.0 Localized enlarged lymph nodes
CPT/HCPCS: 78815; A9552

== ENCOUNTER 2024-07-01 07:45 | Outpatient (RCR) | payer MEDICARE, OTHER, SELFPAY ==
[2024-04-19 08:11] LABS: Hematocrit 49.0 % (37.0-53.0); Hemoglobin* 16.3 gm/dL (13.5-17.5); Immature Granulocytes Pct Auto 0.7 %; Mean Corpuscular HGB Conc 33 gm/dL (32-36); Mean Corpuscular Hemoglobin 30 pg (26-34); Mean Corpuscular Volume 90 fL (80-100); RDW Coefficient of Variation % 13.2 % (11.5-15.5); Red Blood Count 5.47 m/uL (4.30-5.90); White Blood Count* 11.21 K/uL (4.50-11.00)
[2024-04-19 08:12] LABS: Immature Granulocytes Abs Auto 0.10 K/uL (0.00-0.30); Lymphocytes Absolute Auto 1.80 K/uL (0.90-2.90); Slide Review Reflex No
[2024-04-19 08:16] LABS: Albumin* 4.7 g/dL (3.3-5.0); Chloride* 102 mmol/L (96-114); Potassium* 4.9 mmol/L (3.6-5.1); Sodium* 137 mmol/L (135-149)
[2024-04-19 08:18] LABS: Creatinine* 1.0 mg/dL (0.5-1.5); Estimated Glomerular Filt Rate 84 ml/min
[2024-04-19 08:19] LABS: Alanine Aminotransferase* 50 U/L (4-50); Alkaline Phosphatase* 58 U/L (40-150); Anion Gap 3 mEq/L (7-15); Aspartate Amino Transferase* 37 U/L (12-35); Bilirubin Total* 0.9 mg/dL (0.1-1.5); Blood Urea Nitrogen* 17 mg/dL (7-30); Carbon Dioxide* 32 mmol/L (20-32); Glucose* 104 mg/dL (60-115); Total Protein* 7.7 g/dL (6.0-8.3)
[2024-04-19 08:20] LABS: Calcium* 9.5 mg/dL (8.4-10.6)
[2024-07-01 07:51] LABS: Hematocrit 47.5 % (37.0-53.0); Hemoglobin* 15.9 gm/dL (13.5-17.5); Immature Granulocytes Abs Auto 0.15 K/uL (0.00-0.30); Immature Granulocytes Pct Auto 1.9 %; Lymphocytes Absolute Auto 1.80 K/uL (0.90-2.90); Mean Corpuscular HGB Conc 34 gm/dL (32-36); Mean Corpuscular Hemoglobin 30 pg (26-34); Mean Corpuscular Volume 90 fL (80-100); RDW Coefficient of Variation % 13.5 % (11.5-15.5); Red Blood Count 5.28 m/uL (4.30-5.90); White Blood Count* 7.73 K/uL (4.50-11.00)
[2024-07-01 08:03] LABS: Slide Review Reflex No
[2024-07-01 08:05] LABS: Albumin* 4.7 g/dL (3.3-5.0); Chloride* 108 mmol/L (96-114); Sodium* 140 mmol/L (135-149)
[2024-07-01 08:06] LABS: Potassium* 4.5 mmol/L (3.6-5.1)
[2024-07-01 08:08] LABS: Alanine Aminotransferase* 47 U/L (4-50); Alkaline Phosphatase* 45 U/L (40-150); Anion Gap 11 mEq/L (7-15); Aspartate Amino Transferase* 50 U/L (12-35); Bilirubin Total* 0.6 mg/dL (0.1-1.5); Blood Urea Nitrogen* 22 mg/dL (7-30); Carbon Dioxide* 21 mmol/L (20-32); Creatinine* 0.9 mg/dL (0.5-1.5); Est. Creatinine Clearance* 66.46; Estimated Glomerular Filt Rate 95 ml/min; Total Protein* 7.4 g/dL (6.0-8.3)
[2024-07-01 08:09] LABS: Calcium* 9.2 mg/dL (8.4-10.6); Glucose* 112 mg/dL (60-115)
--- NOTE | 2024-09-17 14:41 | ONC.NURNOTE ---
Addendum entered by Gilma Valverde RN 09/18/24 12:51: Brim Flexer received another call from [facility] saying the same as mentioned below. Per Dr. Ruiz, will change to CT. [facility] and patient were made aware. Original Note: Received a call from [facility] asking about reason for PET scan. RN reviewed MD note and discussion about last PET scan findings, treatment recommendations and follow-up recommendations. [facility] states that Medicare doesn't cover scans for surveillance and worry this won't be covered since pt has not had treatment or new findings on other imaging or labs since last scan. Will communicate this to Dr. Ruiz.
== END 2024-10-16 23:59 | disposition home or self-care (01) ==
LOC: CCIC 07:45
PROVIDERS: PCP Student in an Organized Health Care Education/Training Program; Referring Provider Student in an Organized Health Care Education/Training Program; Visit Provider Internal Medicine Hematology & Oncology
DX: C82.00 Follicular lymphoma grade I, unspecified site (principal); R68.89 Other general symptoms and signs
CPT/HCPCS: 36415; 80053; 83615; 84443; 85025; 99214; 99215; G0463

== ENCOUNTER 2024-10-21 08:34 | Outpatient (CLI) | payer MEDICARE, OTHER, SELFPAY ==
--- NOTE | 2024-10-21 09:00 | CRLHL7_ITS ---
For Patients: As a result of the Century Cures Act, medical imaging exams and procedure reports are released immediately into your electronic medical record. You may view this report before your referring provider. If you have questions, please contact your health care provider. Indication: FOLLOW UP FOR LYMPHOMA NO TREATMENT STARTED Technique: CT Chest/Abd/Pelvis 101CC ISOVUE 370 intravenous contrast AND WATER PREP Oral Please note that all CT scans at this facility use dose modulation, iterative reconstruction, and/or weight-based dosing when appropriate to reduce radiation dose to as low as reasonably achievable. Comparison: 04/19/2024, 03/01/2023, 05/21/2022 Findings: In the chest, similar appearance of the ascending aorta. No nodule within the visualized thyroid. No enlarged mediastinal, hilar or axillary lymph nodes. Vascular calcifications. No suspicious pulmonary nodule. Mild dependent areas of atelectasis. No pleural effusion or pulmonary edema. No infiltrate or pneumothorax. No fracture. No intrinsic osseous lesion. In the abdomen, fatty infiltration of the liver is present. No intrahepatic mass. Gallbladder is normal. No calcified gallstones or biliary obstruction. The spleen is within normal limits. Normal adrenal glands and kidneys. Pancreatic parenchyma is normal. No hiatal hernia. Retroperitoneal and central mesenteric adenopathy again noted with lymph nodes measuring up to 3 cm. Mildly prominent portacaval lymph nodes again noted. Associated stranding noted without fluid collection or abscess. Improved appearance of the duodenum compared to the prior study. In the pelvis, the bladder is normal. The prostate is unremarkable. No pelvic or inguinal adenopathy. No hernia. No bowel obstruction or free air. No evidence of colitis. Normal appendix. No vertebral body compression fracture. Mild facet degeneration lower lumbar spine. Impression: No significant interval change regarding the retroperitoneal and central mesenteric bulky adenopathy. No adenopathy in the chest or pelvis. Hepatic steatosis, unchanged. No new findings. Please note that all CT scans at this facility use dose modulation, iterative reconstruction, and/or weight-based dosing when appropriate to reduce radiation dose to as low as reasonably achievable. Dictated by Agapito Zuniga MD @ 10/22/2024 3:41:26 PM (Electronically Signed)
== END 2024-10-21 08:35 | disposition home or self-care (01) ==
LOC: CT 08:34
PROVIDERS: PCP Student in an Organized Health Care Education/Training Program; Visit Provider Internal Medicine Hematology & Oncology
DX: C82.00 Follicular lymphoma grade I, unspecified site (principal); K76.0 Fatty (change of) liver, not elsewhere classified
CPT/HCPCS: 36415; 71260; 74177; 80053; 83615; 85025; 99214; G0463; Q9967

== ENCOUNTER 2025-03-10 07:28 | Outpatient (CLI) | payer MEDICARE, OTHER, SELFPAY ==
--- NOTE | 2025-03-10 08:00 | CRLHL7_ITS ---
For Patients: As a result of the 21st Century Cures Act, medical imaging exams and procedure reports are released immediately into your electronic medical record. You may view this report before your referring provider. If you have questions, please contact your health care provider. INDICATION: Lymphoma follow-up TECHNIQUE: CT chest, abdomen, and pelvis acquired with 97 mL Isovue 370 IV contrast. Water prep. COMPARISON: CT chest abdomen pelvis: 10/21/2024, 04/19/2024, 03/01/2023, 01/14/2022 FINDINGS: CHEST Lungs and pleura: No suspicious nodules. No focal consolidation. No pleural effusion or pneumothorax. Heart and vasculature: Heart size is normal. Aneurysmal ascending aorta at 4.9 cm (2:48).. Main pulmonary artery normal in caliber. Lymph nodes/mediastinum: No new enlarged lymph nodes by size criteria in the chest. ABDOMEN Liver: Unchanged hypoattenuation which may be related to contrast phase or fatty infiltration. No suspicious focal abnormality. Gallbladder and bile ducts: Normal gallbladder. No intrahepatic or extrahepatic biliary dilatation. Pancreas: Normal appearing. Spleen: Normal size and appearance. Adrenal glands: Normal. Kidneys: Symmetric enhancement. No hydronephrosis. GI tract: Diverticulosis throughout the sigmoid colon. Otherwise unremarkable caliber and wall thickness. No bowel obstruction. Normal appendix. Vasculature: Abdominal aorta is normal in caliber. Lymph nodes: No enlarged lymph nodes by size criteria. Para-aortic lymph node enlargement is approximately stable compared to 10/21/2024 with nodes measuring as large as 3.1 x 2.4 cm in the left para-aortic station on 7:65. confluent central mesenteric lymph node enlargement is also approximately stable with conglomerate measuring as large as 3.0 x 1.9 cm on 7:78. Mild associated surrounding fat stranding, stable. Peritoneum/Abdominal Wall: Unremarkable. No free air or significant free fluid. Pelvis: Urinary bladder is distended and thin-walled. Prostate enlargement with similar appearance of enhancing nodularity and intravesical protrusion. MUSCULOSKELETAL Bones: No aggressive osseous lesions. Soft tissues: No chest or abdominal wall masses. IMPRESSION: 1. Stable retroperitoneal and central mesenteric bulky/confluent lymphadenopathy. 2. Other incidental findings detailed above. Please note that all CT scans at this facility use dose modulation, iterative reconstruction, and/or weight-based dosing when appropriate to reduce radiation dose to as low as reasonably achievable. Dictated by Kam Lunsford MD @ 03/11/2025 8:48:37 AM (Electronically Signed)
== END 2025-03-10 07:29 | disposition home or self-care (01) ==
PROVIDERS: PCP Student in an Organized Health Care Education/Training Program; Visit Provider Internal Medicine Hematology & Oncology
DX: C85.90 Non-Hodgkin lymphoma, unspecified, unspecified site (principal); R59.0 Localized enlarged lymph nodes; K57.30 Diverticulosis of large intestine without perforation or abscess without bleeding; N40.0 Benign prostatic hyperplasia without lower urinary tract symptoms; R93.5 Abnormal findings on diagnostic imaging of other abdominal regions, including retroperitoneum
CPT/HCPCS: 71260; 74177; Q9967